=== PATIENT | female | born 1935 | race Caucasian/White ===

== ENCOUNTER 2021-06-08 12:21 | Emergency (ER) | payer MEDICARE, MEDICAID, SELFPAY ==
--- NOTE | ~2021-06-08 | CT_ITS ---
EXAMINATION: CT brain wo con, CT cervical spine wo con EXAM DATE: 06/08/2021 13:08 INDICATION: Fall, right frontal head injury. TECHNIQUE: Spiral CT of the head was performed without contrast. Axial, coronal and sagittal images were reviewed. Spiral CT of the cervical spine was performed without contrast. Axial images were rev iewed. Coronal and sagittal reformatted images were also reviewed. The dose-length product (DLP) fo r this examination was 605.33 (accession [id number]), 103.84 (accession [id number]) mGy-cm. The exposure was tailored according to patient size, and iterative reconstruction (ASIR) was used as additional dose reduction technique. There is no prior study for comparison. FINDINGS: HEAD CT: There is no acute intraparenchymal hemorrhage. No evidence of intraparenchymal brain mass l esion. No evidence of acute infarction. There is no mass effect or midline shift. There is no obstru ctive hydrocephalus suspected. There are no extra-axial collections. There are no acute calvarial f ractures. The orbits are unremarkable. Soft tissue is unremarkable. The visualized sinuses and mas toid air cells are well aerated. CERVICAL CT: There is no evidence of acute cervical fracture. The odontoid process is intact. Pre- dens space is normal. Prevertebral soft tissue is normal. There are no soft tissue abnormalities id entified. There is no disc space widening or traumatic vertebral body subluxation suspected. Modera te disc disease at C5-6 and 6-7. Overall moderate arthropathy. A detailed level by level evaluation of spondylosis can be added as addendum if requested. IMPRESSION: 1. No acute intracranial findings or cervical fracture. 2. Intracranial senescent changes. 3. Cervical spondylosis. Reviewed, dictated and finalized at location G. IMPRESSION: 1. No acute intracranial findings or cervical fracture. 2. Intracranial senescent changes. 3. Cervical spondylosis.
[2021-06-08 12:21] VITALS: BP 122/82; PULSE 55; RESP 20; TEMP 36.8; O2SAT 100
--- NOTE | 2021-06-08 12:30 | PC.NURSE ---
BED ALARM PLACED
--- NOTE | 2021-06-08 13:35 | ED.HEATRA ---
HPI - Head Injury General Chief complaint: Head Injury Stated complaint: fall/head injury Time Seen by Provider: 06/08/21 12:49 Source: EMS and RN notes reviewed Mode of arrival: EMS Limitations: dementia History of Present Illness HPI Narrative: 86 years old white female brought to the emergency room from longterm because of a fall. Patient was walking, tripped and fell, witnessed by the staff, hit a coffee table by left forehead. No loss of consciousness, no bleeding, no laceration. Patient is awake, alert and oriented to her name only which is her baseline Related Data Allergies Allergy/AdvReac Type Severity Reaction Status Date / Time Penicillins Allergy Unknown Verified 06/08/21 12:28 Review of Systems Review of Systems: ROS unobtainable: Yes unobtainable due to mental status Exam Narrative: Exam Narrative: General appearance: Well-developed, well-nourished Skin: Normal color, left forehead scrape/abrasion, no laceration, no bleeding no swelling Head: Normocephalic, nontraumatic Eyes: Clear conjunctiva ENT: Oropharynx normal, ears normal, nose normal Neck: Supple, nontender Chest and respiratory: Airway patent, no respiratory distress, no accessory muscle use Heart: Regular rate/rhythm Abdomen: Soft, nontender, no organomegaly, quiet bowel sounds Vascular: Normal peripheral pulses, normal capillary refill. Musculoskeletal: Normal range of motion, nontender back Neurologic: Alert and oriented to her name only Course Course Emergency Course: Stable Vital Signs Vital signs: Vital Signs Temperature 36.8 C 06/08/21 12:21 Pulse Rate 55 L 06/08/21 12:21 Respiratory Rate 06/08/21 12:21 Blood Pressure 122/82 06/08/21 12:21 Pulse Oximetry 100 06/08/21 12:21 Temperature 36.8 C 06/08/21 12:21 Pulse Rate 55 L 06/08/21 12:21 Respiratory Rate 20 06/08/21 12:21 Blood Pressure 122/82 06/08/21 12:21 Pulse Oximetry 100 06/08/21 12:21 MDM - Head Injury Imaging Data Radiologist's impression: Impressions Cervical Spine CT 06/08/21 13:10 IMPRESSION: 1. No acute intracranial findings or cervical fracture. 2. Intracranial senescent changes. 3. Cervical spondylosis. Head CT 06/08/21 13:10 IMPRESSION: 1. No acute intracranial findings or cervical fracture. 2. Intracranial senescent changes. 3. Cervical spondylosis. Critical Care Time Critical Care Time Critical Care Time: No Discharge Plan Discharge Clinical Impression: Closed head injury Qualifiers: Encounter type: subsequent encounter Qualified Code(s): S09.90XD - Unspecified injury of head, subsequent encounter Patient Disposition: [place] Intermediate/Asst Living Condition: Stable Instructions: Concussion (ED), Head Injury (ED) Additional Instructions: Return if symptoms are worsening , call your family physician for appointment, take Tylenol as as needed for aches and pain, continue home medications. Follow-up/Referrals: Rom Lam MD [Primary Care Provider] -
--- NOTE | 2021-06-08 13:47 | PC.NURSE ---
CALLED LONG TERM SPOKE PAPITO YOUNG AND REPORT GIVEN. NO QUESTIONS
== END 2021-06-08 15:18 ==
PROVIDERS: Emergency Provider Emergency Medicine; PCP Family Medicine
DX: S09.90XA Unspecified injury of head, initial encounter (principal); M47.812 Spondylosis without myelopathy or radiculopathy, cervical region; W01.190A Fall on same level from slipping, tripping and stumbling with subsequent striking against furniture, initial encounter
CPT/HCPCS: 70450; 72125; 99284

== ENCOUNTER 2021-11-19 14:22 | Emergency (ER) | payer MEDICARE, MEDICAID, SELFPAY ==
--- NOTE | ~2021-11-19 | CT_ITS ---
EXAMINATION: CT cervical spine wo [facility] EXAM DATE: 11/19/2021 14:55 INDICATION: Fall, head injury. TECHNIQUE: Spiral CT of the cervical spine was performed without contrast. Axial images were reviewe d. Coronal and sagittal reformatted images cervical spine were also reviewed. The dose-length produc t (DLP) for this examination was 139.69 mGy-cm. The exposure was tailored according to patient size (auto mA exposure control), and iterative reconstruction (ASIR) was used as additional dose reduction technique. There is no prior study for comparison. FINDINGS: There is mild reversal of the normal cervical lordosis which may be degenerative, positiona l or spasm. There is no evidence of acute cervical fracture. The odontoid process is intact. Pre-de ns space is normal. Prevertebral soft tissue is normal. There are no soft tissue abnormalities iden tified. There is no disc space widening or traumatic vertebral body subluxation suspected. Moderate disc disease at C5-6 and C6-7. Advanced arthropathy at some of the levels. A detailed level by tee orona evaluation of spondylosis can be added as addendum if requested. IMPRESSION: No acute cervical fracture. Reversal cervical lordosis. Spondylosis. Reviewed, dictated and finalized at location A. [employer] IMPRESSION: No acute cervical fracture. Reversal cervical lordosis. Spondylosis .
--- NOTE | ~2021-11-19 | CT_ITS ---
EXAMINATION: CT brain wo con DATE: 11/19/2021 14:55 INDICATION: Head injury. TECHNIQUE: Computed tomography (CT) of the head was performed without intravenous contrast. The mA wa s adjusted according to patient size. Iterative reconstruction technique was employed. The dose-lengt h product was 605.33 mGy-cm. COMPARISON: Head CT 06/08/2021 FINDINGS: There are scattered areas of low attenuation in the cerebral white matter. There is no intr acranial hemorrhage, acute infarction, or abnormal intracranial mass lesion. The ventricles are brigid l in size. There are likely changes of ocular lens replacement surgeries. There is mucosal thickening in the paranasal sinuses. The mastoid air cells are normal. IMPRESSION: 1. Stable moderate nonspecific cerebral white matter disease, which likely represents chronic small v essel ischemic disease. Reviewed, dictated and finalized at location A. ING ADMINISTRATOR IMPRESSION: 1. Stable moderate nonspecific cerebral white matter disease, which likely repr esents chronic small vessel ischemic disease.
--- NOTE | 2021-11-19 14:30 | ED.GENADULT ---
HPI - General Adult General Chief complaint: Fall Stated complaint: fall Source: EMS and RN notes reviewed History of Present Illness HPI narrative: Patient is a 86 y/o female sent from [place] for a fall. She reportedly fell today and has a small laceration right eyebrow. Patient has dementia is unable to provide any history. She is awake, but does not answer question or follow commands. She mumbles and moves all 4 extremities. Related Data Home Medications Medication Instructions Recorded Confirmed alendronate 70 mg PO WEEKLY 11/19/21 11/19/21 calcium carbonate-vitamin D3 1 tablet PO BID 11/19/21 [Calcium 500 + D (D3)] cyanocobalamin (vitamin B-12) 500 mcg PO DAILY 11/19/21 [Vitamin B-12] donepezil 10 mg HS 11/19/21 11/19/21 hydroxyzine pamoate 25 mg DAILY PRN 11/19/21 memantine 10 mg BID 11/19/21 mirtazapine [Remeron] 7.5 mg PO HS 11/19/21 oxybutynin chloride 5 mg DAILY 11/19/21 11/19/21 simvastatin 40 mg HS 11/19/21 11/19/21 trazodone 100 mg HS 11/19/21 11/19/21 Allergies Allergy/AdvReac Type Severity Reaction Status Date / Time Penicillins Allergy Unknown Verified 11/19/21 14:41 Review of Systems Review of Systems: ROS unobtainable: Yes unobtainable due to medical condition Exam Const: General: no acute distress and alert Orientation/consciousness: confusion HENMT: Head: normocephalic Ears: external ears normal General nose exam: Normal external nose present Eyes: General: appearance normal, both eyes and all related structures Conjunctivae: conjunctivae normal Neck: Neck: normal visual inspection and full ROM Chest: Chest palpation & inspection: normal inspection of the chest and no tenderness Resp: Effort & Inspection: normal respiratory effort Auscultation: clear to auscultation bilaterally Cardio: Rate: regular rate Rhythm: regular rhythm GI: GI Palp: No abdominal tenderness and Yes Soft to palpation Skin: General skin exam: normal color, turgor normal and ecchymosis (bruise on face) Trauma: laceration (1 cm lac right eyebrow) Neuro: General: confusion Extrem: General: normal to inspection, full ROM and no pedal edema Psych: Appearance: grossly normal Mental Status: mental status grossly normal Affect: normal affect Course Vital Signs Vital signs: Vital Signs Temperature 36.9 C 11/19/21 14:35 Pulse Rate 70 11/19/21 14:35 Respiratory Rate 18 11/19/21 14:35 Blood Pressure 132/75 11/19/21 14:35 Pulse Oximetry 98 11/19/21 14:35 Temperature 36.9 C 11/19/21 14:35 Pulse Rate 58 L 11/19/21 18:14 Respiratory Rate 20 11/19/21 18:14 Blood Pressure 138/52 L 11/19/21 18:14 Pulse Oximetry 98 11/19/21 18:14 Procedures Laceration Laceration 1: Date: 11/19/21 Time: 17:40 Site: face (right eyebrow) Side (If applicable): right Size (cm): 1 Description: linear Local Anesthetic: none ====== Skin Level ====== Skin layer closed with: dermabond ====== Subcutaneous Layer ====== ====== Muscle Layer ====== ====== Tendon Layer ====== Medical Decision Making Vital Signs Vital Signs: Vital Signs Temperature 36.9 C 11/19/21 14:35 Pulse Rate 70 11/19/21 14:35 Respiratory Rate 18 11/19/21 14:35 Blood Pressure 132/75 11/19/21 14:35 Pulse Oximetry 98 11/19/21 14:35 Temperature 36.9 C 11/19/21 14:35 Pulse Rate 58 L 11/19/21 18:14 Respiratory Rate 20 11/19/21 18:14 Blood Pressure 138/52 L 11/19/21 18:14 Pulse Oximetry 98 11/19/21 18:14 Discharge Plan Discharge Clinical Impression: Laceration of eyebrow, right Qualifiers: Encounter type: initial encounter Qualified Code(s): S01.111A - Laceration without foreign body of right eyelid and periocular area, initial encounter Fall Qualifiers: Encounter type: initial encounter Qualified Code(s): W19.XXXA - Unspecified fall, initial encounter Patient Disposition: [facility] Correction/Asst Living
[2021-11-19 14:35] VITALS: BP 132/75; PULSE 70; RESP 18; TEMP 36.9; O2SAT 98
[2021-11-19] MEDS: TETANUS,DIPHTHERIA,AC PERTUSSIS ADULT (0.5 ML) BOOSTRIX IM (15:23)
[2021-11-19 18:14] VITALS: BP 138/52; PULSE 58; RESP 20; O2SAT 98
[2021-11-19 19:00] VITALS: BP 114/86; PULSE 74; RESP 18; O2SAT 97
--- NOTE | 2021-11-19 19:00 | PC.NURSE ---
Assuming care of pt.
--- NOTE | 2021-11-19 22:36 | PC.NURSE ---
[facility] here
[2021-11-19 22:58] VITALS: BP 110/75; PULSE 86; RESP 18; O2SAT 98
== END 2021-11-19 22:45 ==
PROVIDERS: Emergency Provider Emergency Medicine; PCP Family Medicine
DX: S01.111A Laceration without foreign body of right eyelid and periocular area, initial encounter (principal); F03.90 Unspecified dementia, unspecified severity, without behavioral disturbance, psychotic disturbance, mood disturbance, and anxiety; Z23 Encounter for immunization; W19.XXXA Unspecified fall, initial encounter
CPT/HCPCS: 12011; 70450; 72125; 90471; 90715; 99284

== ENCOUNTER 2023-02-03 15:51 | Inpatient (IN) | payer MEDICARE, MEDICAID, SELFPAY ==
[2023-02-03] VITALS (15 sets, daily range): BP systolic 106–130; BP diastolic 62–85; PULSE 93–112; RESP 15–33; TEMP 36.3–36.9; O2SAT 98–100
--- NOTE | ~2023-02-03 | XR_ITS ---
EXAMINATION: XR chest 1V portable Exam Date/Time: 02/04/2023 14:40 CDT HISTORY: hypoxia Comparison: None available. RESULT: Lines, tubes, and devices: None. Lungs and pleura: Senescent changes. No focal consolidation or pneumothorax. Cardiomediastinal silhouette: Mild aortic tortuosity. Otherwise unremarkable. Other: No acute osseous or upper abdominal finding. Possible nondisplaced left fourth and fifth late ral rib fractures. IMPRESSION: No acute cardiopulmonary process. Nondisplaced left fourth and fifth lateral rib fractures, presumed chronic or blastic bony by acute pain/tenderness Reviewed, dictated and finalized at location K. IMPRESSION: No acute cardiopulmonary process. Nondisplaced left fourth and fifth lateral ri b fractures, presumed chronic or blastic bony by acute pain/tenderness
--- NOTE | ~2023-02-03 | CT_ITS ---
EXAMINATION: CT abdomen pelvis w con DATE: 02/03/2023 19:10 INDICATION: sacral ulcer TECHNIQUE: Computed tomography (CT) of the abdomen and pelvis was performed with 100 mL Omnipaque-350 intravenous contrast. Automated exposure control and iterative reconstruction technique were employe d. The dose-length product was 258.51 mGy-cm. COMPARISON: None. FINDINGS: Respiratory motion, nonstandard positioning, and beam hardening from arm positioning because limitati ons in this examination. Lower thorax: Small focus of dependent right lower lobe atelectasis/aspiration. Calcified granulomas in the lungs. Aortic valve and coronary artery calcification. Liver: Normal. Biliary/Gallbladder: Mild gallbladder enlargement No bile duct dilation. Pancreas: Moderate atrophy. Spleen: Granulomatous calcifications. Adrenals:No mass. Kidneys: Focus of right posterior midpole scar, with nonobstructing calcification. Simple left upper pole cyst. Bilateral hypodensities that are too small to characterize but most likely represent cysts . GI tract: The rectum is dilated to 6.3 cm by formed stool with mild wall thickening but no surroundin g inflammatory change. Distal esophageal and gastric wall edema. No small bowel dilation. The appendi x is not visualized Mesentery/Peritoneum: No ascites, mass, or free air. Retroperitoneum: No mass. Atherosclerotic abdominal aortic and/or arterial calcifications. Pelvis: Pelvic organs are within normal limits. Soft Tissues: Large sacral decubitus ulcer extending over the entire posterior surface of the sacrum and in contact with bone. Extension of the ulcer into left gluteal fat Bones: No acute osseous finding. Moderate bilateral hip effusions. No definite sclerosis or erosion of the sacrum, deep to the sacral ulceration. IMPRESSION: Limited examination as detailed above. Esophagitis/gastritis. Gallbladder hydrops. Large sacral decub itus ulcer, without definitive evidence of acute or chronic osteomyelitis, noting that early or mild disease is not excluded. Fecal impaction. Reviewed, dictated and finalized at location K. IMPRESSION: Limited examination as detailed above. Esophagitis/gastritis. Gallbladder hydro ps. Large sacral decubitus ulcer, without definitive evidence of acute or chron ic osteomyelitis, noting that early or mild disease is not excluded. Fecal impa ction.
--- NOTE | 2023-02-03 15:55 | ECG_ITS ---
Measurements Intervals [place] Rate: 105 P: [place]: 0 QRS: 12 QRSD: 105 T: 107 QT: 358 QTc: 475 Interpretive Statements SINUS TACHYCARDIA ST-T WAVE ABNORMALITY IN HIGH LATERAL LEADS- CONSIDER ISCHEMIA BASELINE ARTIFACT- I, II, III, AVR, AVL, AVF, V4-V6 BORDERLINE ECG NO PREVIOUS ECG AVAILABLE FOR COMPARISON Electronically Signed On 02-03-2023 21:46:03 CDT by Fidencio Cueto D.O.
[2023-02-03 16:09] LABS: Glucose Point of Care 134 mg/dl (65-105)
[2023-02-03 16:35] LABS: Basophils Percent Auto 0.2 % (0.2-1.2); Eosinophils Absolute Auto 0.1 K/mm3 (0-0.3); Eosinophils Percent Auto 0.6 % (0-4.4); Hematocrit 33.8 % (37.0-47.0); Hemoglobin 9.6 g/dL (12.0-15.0); Immature Granulocyte Absolute 0.04 K/mm3 (0.00-0.031); Immature Granulocyte Percent A 0.3 % (0-0.5); Lymphocytes Absolute Auto 1.08 K/mm3 (0.9-3.2); Lymphocytes Percent Auto 8.5 % (18.3-44.2); Mean Corpuscular HGB Conc 28.4 g/dl (32-36); Mean Corpuscular Hemoglobin 29.6 pg (26-34); Mean Corpuscular Volume 104.3 fl (80-100); Monocytes Absolute Auto 0.4 K/mm3 (0.1-0.6); Monocytes Percent Auto 3.2 % (2.6-8.5); Neutrophils Percent Auto 87.2 % (45.5-73.1); Platelet Count Result 378 k/mm3 (150-375); Red Blood Count 3.24 M/mm3 (4.2-5.4); White Blood Count 12.6 K/mm3 (4.5-10.0)
[2023-02-03 16:43] LABS: Lactic Acid Reflex 1.2 mmol/L (0.7-2.0)
[2023-02-03 16:44] LABS: INR 1.3; Prothrombin Time 15.3 Seconds (11.1-14.7)
[2023-02-03 16:45] LABS: Partial Thromboplastin Time 24.4 SECONDS (22.3-36.8)
[2023-02-03 16:47] LABS: Alanine Aminotransferase 21 U/L (6-35); Albumin Level 3.1 g/dL (3.5-5.1); Alkaline Phosphatase 122 U/L (38-126); Anion Gap 1 mmol/L (8-16); Aspartate Amino Transferase 30 U/L (14-36); Bilirubin,Total 0.6 mg/dL (0.2-1.3); Blood Urea Nitrogen 44 mg/dL (7-17); CRP 7.5 mg/dL (<1.0); Calcium 8.7 mg/dL (8.4-10.2); Carbon Dioxide 32 mmol/L (22-30); Chloride 122 mmol/L (98-107); Estimated CRCL calculation 31 ml/min; Estimated Glomerular Filt Rate > 60; Glucose 141 mg/dL (65-110); Potassium 4.5 mmol/L (3.4-5.0); Sodium 155 mmol/L (137-145)
[2023-02-03 16:53] LABS: Anisocytosis 1+ (NORMAL); Hypochromasia 1+ (NORMAL); Target Cells 1+ (NORMAL)
[2023-02-03 16:54] LABS: Ovalocytes 1+ (NORMAL); Schistocytes None Seen (NORMAL)
--- NOTE | 2023-02-03 17:02 | ED.WOUNDLAC ---
HPI - Wound/Laceration General Chief Complaint: Wound/Laceration Stated Complaint: necrotic sore History of Present Illness HPI narrative: Patient is an 87-year-old female who presents from her [facility] with a sacral decubitus ulcer. Patient has dementia and oriented x1. She is unable to provide any history. She has two quarter sized open areas over the sacrum. On the right side over the buttock the wound is very bruised and developing necrosis from not moving. There is a foul smell but no drainage. Related Data Home Medications Medication Instructions Recorded Confirmed alendronate 70 mg tablet 70 mg PO WEEKLY 11/19/21 11/19/21 calcium carbonate 500 mg-vitamin 1 tablet PO BID 11/19/21 D3 3.125 mcg (125 unit) tablet cyanocobalamin (vitamin B-12) 500 500 mcg PO DAILY 11/19/21 mcg tablet (Vitamin B-12) donepezil 10 mg tablet 10 mg HS 11/19/21 11/19/21 hydroxyzine pamoate 25 mg capsule 25 mg DAILY PRN Agitation 11/19/21 memantine 10 mg tablet 10 mg BID 11/19/21 mirtazapine 15 mg tablet (Remeron) 7.5 mg PO HS 11/19/21 oxybutynin chloride 5 mg tablet 5 mg DAILY 11/19/21 11/19/21 simvastatin 40 mg tablet 40 mg HS 11/19/21 11/19/21 trazodone 100 mg tablet 100 mg HS 11/19/21 11/19/21 Allergies Allergy/AdvReac Type Severity Reaction Status Date / Time Penicillins Allergy Unknown Verified 11/19/21 14:41 Review of Systems Review of Systems: ROS unobtainable: Yes unobtainable due to mental status [facility] Past Medical History Medical History (Updated 02/03/23 @ 21:42 by Jt Toledo MD) Anxiety COPD (chronic obstructive pulmonary disease) Dementia Depression Hypertension Social History Social History Gender identity (if verbalized by the patient): Female Exam Narrative: GENERAL: Chronically ill-appearing, underweight, and in no acute distress. HEAD: Normocephalic, atraumatic. EYES: PERRL and EOMI. ENT: Dry mucous membranes. CHEST: Clear to auscultation. No respiratory distress. HEART: Regular rate and rhythm. Normal peripheral pulses. ABDOMEN: Soft, nontender, nondistended. Sacral decubitus ulcers present with bruising necrosis. Foul-smelling without drainage. EXTREMITIES: Normal range of motion. No edema. SKIN: Warm, dry, no rash. NEURO: Alert alert but not oriented.. Course Course Emergency Course: Patient is incredibly dry, we have been unable to obtain urine despite her getting couple liters of fluid. She will be started on IV antibiotics for sacral decubitus wound. I tried to contact patient's POA but the phone number listed had been disconnected. Patient will did receive a enema down here. Vital Signs Vital signs: Vital Signs Pulse Rate 108 H 02/03/23 15:57 Respiratory Rate 19 02/03/23 15:57 Temperature 98.5 F 02/03/23 15:59 Pulse Rate 98 02/03/23 19:31 Respiratory Rate 20 02/03/23 19:31 Blood Pressure 107/85 02/03/23 19:30 Pulse Oximetry 100 02/03/23 19:31 Oxygen Delivery Room Air 02/03/23 15:59 MDM - Wound/Laceration Lab Data 02/03/23 16:25 02/03/23 16:25 Labs: Lab Results 02/03/23 02/03/23 02/03/23 Range/Units 16:00 16:25 16:25 WBC 12.6 H (4.5-10.0) K/mm3 RBC 3.24 L (4.2-5.4) M/mm3 Hgb 9.6 L (12.0-15.0) g/dL Hct 33.8 L (37.0-47.0) % MCV 104.3 H (80-100) fl MCH 29.6 (26-34) pg MCHC 28.4 L (32-36) g/dl RDW 15.0 H (11.5-14.5) % Plt Count 378 H (150-375) k/mm3 MPV 10.0 (7.4-10.4) fl Immature Gran % (Auto) 0.3 (0-0.5) % Neut % (Auto) 87.2 H (45.5-73.1) % Lymph % (Auto) 8.5 L (18.3-44.2) % [place] % (Auto) 3.2 (2.6-8.5) % Eos % (Auto) 0.6 (0-4.4) % Baso % (Auto) 0.2 (0.2-1.2) % Lymph # (Auto) 1.08 (0.9-3.2) K/mm3 [place] # (Auto) 0.4 (0.1-0.6) K/mm3 Eos # (Auto) 0.1 (0-0.3) K/mm3 Baso # (Auto) 0.0 (0.0-0.1) K/mm3 Abs Immat Gran (auto) 0.04 H (0.00-0.
[2023-02-03] MEDS: SODIUM CHLORIDE 0.9% IV 1,000 ML 999 ML IV CONT ×2 (17:35→19:24)
--- NOTE | 2023-02-03 20:28 | PM.IMHP ---
H&P: HPI History of Present Illness Date/Time: 02/03/23 20:28 Chief Complaint: Altered mental status Narrative: This is an 87-year-old female with past medical history significant for dementia, she is a long-term resident, patient is brought to the emergency room for evaluation of necrotic decubitus ulcers decreased per orally intake and altered mental status. Patient is unable to give any history which has been obtained in part reviewing medical records physician from the emergency room and long-term records. Preliminary workup was significant for chemistry panel with sodium of 155, CBC showed a leukocyte count Twelve thousand, hemoglobin 9.6, hematocrit 33 MCV 104, a CT of abdomen and pelvis was reported as: FINDINGS: Respiratory motion, nonstandard positioning, and beam hardening from arm positioning because limitations in this examination. Lower thorax: Small focus of dependent right lower lobe atelectasis/aspiration. Calcified granulomas in the lungs. Aortic valve and coronary artery calcification. Liver: Normal.? Biliary/Gallbladder: Mild gallbladder enlargement No bile duct dilation. Pancreas: Moderate atrophy. Spleen: Granulomatous calcifications. Adrenals:No mass. Kidneys: Focus of right posterior midpole scar, with nonobstructing calcification. Simple left upper pole cyst. Bilateral hypodensities that are too small to characterize but most likely represent cysts. GI tract: The rectum is dilated to 6.3 cm by formed stool with mild wall thickening but no surrounding inflammatory change. Distal esophageal and gastric wall edema. No small bowel dilation. The appendix is not visualized Mesentery/Peritoneum: No ascites, mass, or free air. Retroperitoneum: No mass. Atherosclerotic abdominal aortic and/or arterial calcifications. Pelvis: Pelvic organs are within normal limits. Soft Tissues: Large sacral decubitus ulcer extending over the entire posterior surface of the sacrum and in contact with bone. Extension of the ulcer into left gluteal fat Bones:? No acute osseous finding. Moderate bilateral hip effusions. No definite sclerosis or erosion of the sacrum, deep to the sacral ulceration. IMPRESSION: Limited examination as detailed above. Esophagitis/gastritis. Gallbladder hydrops. Large sacral decubitus ulcer, without definitive evidence of acute or chronic osteomyelitis, noting that early or mild disease is not excluded. Fecal impaction. Review of Systems Review of Systems: ROS unobtainable: Yes unobtainable due to medical condition and unobtainable due to mental status (Obtunded) [facility] Past Medical History Medical History (Updated 02/04/23 @ 00:46 by Colton Dang MD) Anxiety COPD (chronic obstructive pulmonary disease) Dementia Depression Hypertension Social History Social History Smoking status: Unknown if ever smoked Alcohol intake: unknown Substance use: unknown Gender identity (if verbalized by the patient): Female Spiritual care concerns: No Meds Home Medications and Allergies Home Medications Medication Instructions Recorded Confirmed Type alendronate 70 mg tablet 70 mg PO WEEKLY 11/19/21 02/03/23 History calcium carbonate 500 mg-vitamin 1 tablet PO BID 11/19/21 02/03/23 History D3 3.125 mcg (125 unit) tablet cyanocobalamin (vitamin B-12) 500 500 mcg PO DAILY 11/19/21 02/03/23 History mcg tablet (Vitamin B-12) donepezil 10 mg tablet 10 mg PO HS 11/19/21 02/03/23 History memantine 10 mg tablet 10 mg PO BID 11/19/21 02/03/23 History mirtazapine 15 mg tablet (Remeron) 7.5 mg PO HS 11/19/21 02/03/23 History oxybutynin chloride 5 mg tablet 5 mg PO DAILY 11/19/21 02/03/23 History simvastatin 40 mg tablet 40 mg PO HS 11/19/21 02/03/23 History trazodone 100 mg tablet 100 mg PO HS 11/19/21 02/03/23 History acetaminophen 650 mg tablet 650 mg PO Q6H PRN Pain (Scale 02/03/23 02/03/23 History Score 1-3) ascorbic acid (vitamin C) 500 mg 500 mg P
[2023-02-03] MEDS: AZTREONAM 1 GM in SODIUM CHLORIDE 0.9% IV 50 ML 100 ML IVPB (21:07)
[2023-02-03] MEDS: SODIUM CHLORIDE 0.9% IV 1,000 ML 125 ML IV CONT (22:27)
[2023-02-04] VITALS (7 sets, daily range): BP systolic 113–143; BP diastolic 63–89; PULSE 65–99; RESP 16–20; TEMP 36.1–36.4; O2SAT 94–100; BMI 14.3
--- NOTE | 2023-02-04 00:18 | PC.NURSE ---
This patient, Claire Sosa, was admitted to Medical Room 342-01. Patient/family oriented to hospital policies and general routines including ID bracelet, bed and alarms, visiting hours, pain management, procedures, bathroom and other care routines, personal items, smoking policy, room service/diet, and visiting hours. Information on how to activate the Rapid Response Team has been discussed. Patient/Family are encouraged to report perceived risks to care and to ask questions if they do not understand what they are told or what they should do. Wound Photos completes wound care consult completed
[2023-02-04] MEDS: DEXTROSE 5%/0.45% SOD CHL 1,000 ML 75 ML IV CONT (00:46)
[2023-02-04 01:16] LABS: Basophils Percent Auto 0.1 % (0.2-1.2); Eosinophils Absolute Auto 0.1 K/mm3 (0-0.3); Hematocrit 31.4 % (37.0-47.0); Hemoglobin 8.9 g/dL (12.0-15.0); Immature Granulocyte Absolute 0.03 K/mm3 (0.00-0.031); Immature Granulocyte Percent A 0.3 % (0-0.5); Lymphocytes Absolute Auto 0.98 K/mm3 (0.9-3.2); Lymphocytes Percent Auto 9.8 % (18.3-44.2); Mean Corpuscular HGB Conc 28.3 g/dl (32-36); Mean Corpuscular Hemoglobin 29.4 pg (26-34); Mean Corpuscular Volume 103.6 fl (80-100); Mean Platelet Volume 10.1 fl (7.4-10.4); Monocytes Absolute Auto 0.3 K/mm3 (0.1-0.6); Monocytes Percent Auto 2.8 % (2.6-8.5); Neutrophils Absolute Auto 8.6 K/mm3 (1.3-6.7); Platelet Count Result 333 k/mm3 (150-375); Red Blood Count 3.03 M/mm3 (4.2-5.4)
[2023-02-04 01:22] LABS: Anisocytosis 1+ (NORMAL); Hypochromasia 1+ (NORMAL); Platelet Estimate Adequate (Adequate)
[2023-02-04 01:23] LABS: Ovalocytes 1+ (NORMAL); Schistocytes None Seen (NORMAL)
[2023-02-04 01:27] LABS: Anion Gap 2 mmol/L (8-16); Blood Urea Nitrogen 33 mg/dL (7-17); Calcium 7.7 mg/dL (8.4-10.2); Carbon Dioxide 28 mmol/L (22-30); Chloride 124 mmol/L (98-107); Estimated CRCL calculation 31 ml/min; Estimated Glomerular Filt Rate > 60; Glucose 154 mg/dL (65-110); Magnesium 2.7 mg/dL (1.6-2.3); Phosphorus 2.7 mg/dL (2.5-4.5); Sodium 154 mmol/L (137-145)
[2023-02-04] MEDS: AZTREONAM 1 GM in SODIUM CHLORIDE 0.9% IV 50 ML 100 ML IVPB (05:16)
[2023-02-04 05:54] LABS: Basophils Percent Auto 0.2 % (0.2-1.2); Eosinophils Absolute Auto 0.1 K/mm3 (0-0.3); Eosinophils Percent Auto 1.4 % (0-4.4); Hematocrit 30.7 % (37.0-47.0); Hemoglobin 8.6 g/dL (12.0-15.0); Immature Granulocyte Absolute 0.03 K/mm3 (0.00-0.031); Immature Granulocyte Percent A 0.3 % (0-0.5); Lymphocytes Absolute Auto 0.96 K/mm3 (0.9-3.2); Lymphocytes Percent Auto 10.9 % (18.3-44.2); Mean Corpuscular Hemoglobin 29.5 pg (26-34); Mean Corpuscular Volume 105.1 fl (80-100); Mean Platelet Volume 10.1 fl (7.4-10.4); Monocytes Absolute Auto 0.3 K/mm3 (0.1-0.6); Monocytes Percent Auto 3.3 % (2.6-8.5); Neutrophils Absolute Auto 7.4 K/mm3 (1.3-6.7); Neutrophils Percent Auto 83.9 % (45.5-73.1); Platelet Count Result 311 k/mm3 (150-375); Red Blood Count 2.92 M/mm3 (4.2-5.4); Red Cell Distribution Width 15.2 % (11.5-14.5); White Blood Count 8.8 K/mm3 (4.5-10.0)
[2023-02-04 06:11] LABS: Anion Gap 4 mmol/L (8-16); Blood Urea Nitrogen 30 mg/dL (7-17); Calcium 7.9 mg/dL (8.4-10.2); Carbon Dioxide 27 mmol/L (22-30); Chloride 124 mmol/L (98-107); Estimated CRCL calculation 31 ml/min; Estimated Glomerular Filt Rate > 60; Glucose 148 mg/dL (65-110); Potassium 3.9 mmol/L (3.4-5.0); Sodium 155 mmol/L (137-145)
[2023-02-04 07:31] LABS: Hypochromasia 1+ (NORMAL); Ovalocytes 1+ (NORMAL); Platelet Estimate Adequate (Adequate); Schistocytes None Seen (NORMAL)
[2023-02-04 07:32] LABS: Anisocytosis 1+ (NORMAL)
[2023-02-04] MEDS: PANTOPRAZOLE SODIUM IV 40 MG VIAL IV PUSH ×2 (09:16→21:00)
--- NOTE | 2023-02-04 10:35 | PM.IMPN ---
Progress Note: A&P Assessment and Plan (1) Decubitus ulcer of sacral area: Code(s): L89.159 - Pressure ulcer of sacral region, unspecified stage Status: Acute Assessment and Plan: Patient noted to have large decubitus ulceration and imaging suggestive extending to the bone without suggested osteomyelitis. Prelim discharge and follow odor noted suggesting infection. Continue broad-spectrum antibiotics-IV vancomycin pharmacy to dose, IV cefepime, and IV metronidazole Continue offloading schedule q.2 hours General surgery and Wound care consulted and appreciate recommendations. Plan for OR debridement tomorrow Michele catheter placed due to decubitus ulcer Blood cultures pending (2) Acute dehydration: Code(s): E86.0 - Dehydration Status: Acute Assessment and Plan: Secondary to acute infection, poor oral intake and suggested by acute hypernatremia Trend bMP Given hypernatremia will treat with D5W until hypernatremia corrected and adjust IV fluids as needed. Monitor strict I's and O's (3) Wound infection: Code(s): T14.8XXA - Other injury of unspecified body region, initial encounter; L08.9 - Local infection of the skin and subcutaneous tissue, unspecified Status: Acute Assessment and Plan: As above (4) Acute hypernatremia: Code(s): E87.0 - Hyperosmolality and hypernatremia Status: Acute Assessment and Plan: Sodium 155 on admission. Secondary to poor oral free water intake. Changed to D5W at 75 mL/hour. Repeat sodium 152. Will continue q.6 hours sodium checks until sodium less than 145 (5) Esophagitis: Code(s): K20.90 - Esophagitis, unspecified without bleeding Status: Acute Assessment and Plan: A suggested on CT scan. Continue IV PPI b.i.d. (6) Fecal impaction: Code(s): K56.41 - Fecal impaction Status: Acute Assessment and Plan: Soapsuds enema x1 patient with bowel movement today. (7) Altered mental status: Code(s): R41.82 - Altered mental status, unspecified Status: Acute Assessment and Plan: Likely secondary to hyponatremia likely to be Endocrine metabolic encephalopathy Supportive care (8) Acute metabolic encephalopathy: Code(s): G93.41 - Metabolic encephalopathy Status: Acute Assessment and Plan: secondary to hypernatremia, acute decubitus ulcer with infection, dehydration and known underlying dementia. Continue to treat as above. Monitor neuro status (9) Abnormal urinalysis: Code(s): R82.90 - Unspecified abnormal findings in urine Status: Acute Assessment and Plan: UA sent with IV catheter insertion and demonstrated cloudy urine with high specific gravity, 3+ blood, positive nitrates, 2+ leukocyte, greater than 100 wbc's and rbc's, rare epi cells and 4+ bacteria suggestive of acute infection. Given patient's mental status it difficult to assess symptoms. Continue broad-spectrum IV antibiotics as above. Urine and blood cultures pending Plan Code status: Full code. Disposition: Patient is from jail and has a state guardian. Diet: Regular pureed diet, NPO after midnight for OR debridement Antibiotic: Vancomycin IV day 2, cefepime IV day 1, metronidazole IV day 1 DVT prophylaxis: SCDs, hold pharmacologic prophylaxis until postop and cleared by General surgery Time Spent With Patient Time with patient: Greater than 35 minutes Subjective Date/time seen: 02/04/23 10:35 Patient found in bed. Awake, but not answering questions or following commands. Nursing reports patient is intermittently moaning. Review of Systems Review of Systems: ROS unobtainable: Yes unobtainable due to medical condition and unobtainable due to mental status Exam Narrative: General: Thin, frail, moderately ill-appearing older adult female lying in bed. Neuro/Psych: Awake, unable to assess orientation, speech with incomprehensible words. Does
--- NOTE | 2023-02-04 11:35 | PM.CNGS ---
Assessment and Plan Assessment and plan (1) Decubitus ulcer of sacral area: Code(s): L89.159 - Pressure ulcer of sacral region, unspecified stage Status: Acute Assessment and Plan: The patient has a large necrotic sacral decubitus ulcer that extends to bone. CT without evidence of osteomyelitis. Continue with broad-spectrum IV antibiotics and will initiate local wound care with Dakin's soaked gauze dressing changes. We would recommend excisional debridement of the sacral ulcer in the OR by Dr. Chin. Will allow the patient to have a regular pureed diet today and will make her NPO after midnight. She has been added onto the OR schedule tomorrow. (2) Pressure ulcer: Code(s): L89.90 - Pressure ulcer of unspecified site, unspecified stage Status: Acute Assessment and Plan: Multiple additional small deep tissue injuries and superficial pressure ulcers of the left hip that appear stable. No indication for any surgical intervention to these areas. Recommend to continue with local wound care. Will initiate mepilex border dressings to the closed pressure areas for protection and start silver gel dressing changes with mepilex border to the open ulcers on the left hip. Recommend frequent turning at least every 2 hours. Will also order a specialty mattress. (3) Fecal impaction: Code(s): K56.41 - Fecal impaction Status: Acute Assessment and Plan: Noted on CT. Received soap suds enema in ER and did not tolerate well per nursing. Will try fleets enema today. May need stimulation from above as well if unable to tolerate enemas. (4) Acute hypernatremia: Code(s): E87.0 - Hyperosmolality and hypernatremia Status: Acute Assessment and Plan: Sodium 155 on admission. Appeared dehydrated, continue IV fluids, monitor labs. (5) Dementia: Code(s): F03.90 - Unspecified dementia, unspecified severity, without behavioral disturbance, psychotic disturbance, mood disturbance, and anxiety Status: Chronic (6) COPD (chronic obstructive pulmonary disease): Code(s): J44.9 - Chronic obstructive pulmonary disease, unspecified Status: Chronic (7) Body mass index (BMI) less than 19: Code(s): Z68.1 - Body mass index [BMI] 19.9 or less, adult Status: Acute Plan I have discussed the patient's case and plan of care with Dr. Chin. Thank you for allowing us to see the patient in consultation and we will continue to follow along with you. History of Present Illness Consult details Consult date: 02/04/23 Reason for consult: other (Necrotic sacral decubitus ulcer) Requesting physician: Colton Dang MD Narrative: This is an 87-year-old woman with dementia who was brought into the ER yesterday for evaluation of a sacral decubitus ulcer. Patient is unable to provide history due to her dementia. During my evaluation, she is primarily mumbling and will not answer any of my orientation or simple yes or no questions. Therefore, her history is obtained by review of the electronic medical record. Per nursing, she is a [facility] of the [facility]. In the ER, [place] [address], hemoglobin 9.6, sodium 155, BUN 44, creatinine 0.7, lactic acid 1.2, and CRP 7.5. She was afebrile and hemodynamically stable. She was found to have a foul-smelling necrotic sacral decubitus ulcer. CT scan of the abdomen and pelvis showed a large sacral decubitus ulcer without definitive evidence of acute or chronic osteomyelitis, fecal impaction, esophagitis/gastritis, and gallbladder hydrops. She received a soapsuds enema in the ER. Reportedly she has not had a bowel movement. She was admitted to the hospitalist service on the medical floor. She is seen this morning with the wound care nurse. Review of Systems Review of Systems: ROS unobtainable: Yes unobtainable due to medical condition PMFSH Past Medical History Medical History (Updated 02/04/23 @ 11:58 by Neda
[2023-02-04] MEDS: CEFEPIME 2 GM/NS 50 ML 2 GM/50 ML BAG IVPB (13:04)
[2023-02-04] MEDS: DEXTROSE 5% 1,000 ML 1,000 ML 75 ML IV CONT (13:04)
[2023-02-04] MEDS: SILVERGEL (ELTA) 45 ML 1 APPLIC TOPICAL (13:05)
[2023-02-04 13:10] LABS: Sodium 152 mmol/L (137-145)
[2023-02-04 14:16] LABS: Appearance Urine Cloudy (Clear); Bacteria Urine 4+ /hpf; Bilirubin Urine Negative (Negative); Blood Urine 3+ (Negative); Color Urine Yellow (Yellow); Glucose Urine UA Negative (Negative); Ketones Urine Negative (Negative); Leukocyte Esterase Ur 2+ LEU/UL (Negative); Nitrate Urine Positive (Negative); Protein Urine 1+ mg/dL (Negative); RBC Urine >100 /hpf (0-2); Squamous Epithelial Cell Urine Occasional /hpf (Few); Urobilinogen Urine 0.2 mg/dL (<2.0); WBC Clumps Urine Present /HPF; WBC Urine >100 /hpf; pH Urine 5.5 (5.0-9.0)
[2023-02-04 14:34] LABS: Specific Grav Ur 1.044 (1.001-1.035)
[2023-02-04 14:41] LABS: Base Excess ABG -0.7 mEq/l (+/-2.0); Carboxyhemoglobin 0.5 % THb (0-2.0); Fractional Inspired Oxygen 36 %; HCO3 ABG 22.5 mEq/l (22.0-26.0); Methemoglobin ABG 0.3 %THb (0-1.5); Oxygen Content ABG 12.6 %vol (16.0-22.0); Oxygen Saturation ABG 99.6 % (95.0-100.0); Oxyhemoglobin 98.2 % THb (90.0-100.0); PCO2 ABG 31.4 mmHg (35.0-45.0); PO2 ABG 234.1 mmHg (80.0-100.0); Total Hemoglobin 8.7 g/dL (12.0-18.0); pH ABG 7.474 (7.350-7.450)
[2023-02-04 14:45] LABS: Device NASAL CANNULA; Modified Allen's Test Pass; Site Drawn RIGHT RADIAL
[2023-02-04] MEDS: metroNIDAZOLE 500 MG/ISO 100ML 500 MG/100 ML BAG 100 MG IVPB ×2 (14:49→21:04)
[2023-02-04 15:16] LABS: Add Urine Microscopic? YES
--- NOTE | 2023-02-04 15:20 | PC.NURSE ---
RN has attempted to call Oli So, pt's guardian, with no success.
--- NOTE | 2023-02-04 15:28 | PC.NURSE ---
RN recieved a call back from Jeramy Winchester, covering for Oli So who is out of town. Jeramy Winchester gave consent via phone for pt's I&D tomorrow.
[2023-02-04 15:51] LABS: Sodium 154 mmol/L (137-145)
[2023-02-04] MEDS: SOD HYPOCHLORITE 1/4 STRENGTH 473 ML 1 APPLIC TOPICAL (21:00)
[2023-02-04 22:44] LABS: Sodium 151 mmol/L (137-145)
[2023-02-05] VITALS (15 sets, daily range): BP systolic 96–144; BP diastolic 45–92; PULSE 64–99; RESP 12–20; TEMP 36–36.8; O2SAT 97–100
[2023-02-05] MEDS: metroNIDAZOLE 500 MG/ISO 100ML 500 MG/100 ML BAG 100 MG IVPB ×3 (05:40→21:07)
[2023-02-05 05:57] LABS: Basophils Percent Auto 0.1 % (0.2-1.2); Eosinophils Absolute Auto 0.1 K/mm3 (0-0.3); Hematocrit 27.5 % (37.0-47.0); Hemoglobin 7.9 g/dL (12.0-15.0); Immature Granulocyte Absolute 0.04 K/mm3 (0.00-0.031); Immature Granulocyte Percent A 0.4 % (0-0.5); Lymphocytes Absolute Auto 0.73 K/mm3 (0.9-3.2); Lymphocytes Percent Auto 7.5 % (18.3-44.2); Mean Corpuscular HGB Conc 28.7 g/dl (32-36); Mean Corpuscular Volume 101.1 fl (80-100); Mean Platelet Volume 10.3 fl (7.4-10.4); Monocytes Absolute Auto 0.3 K/mm3 (0.1-0.6); Monocytes Percent Auto 2.8 % (2.6-8.5); Neutrophils Absolute Auto 8.6 K/mm3 (1.3-6.7); Neutrophils Percent Auto 88.2 % (45.5-73.1); Platelet Count Result 261 k/mm3 (150-375); Red Blood Count 2.72 M/mm3 (4.2-5.4); Red Cell Distribution Width 14.9 % (11.5-14.5); White Blood Count 9.8 K/mm3 (4.5-10.0)
[2023-02-05 06:19] LABS: Alanine Aminotransferase 17 U/L (6-35); Albumin Level 2.7 g/dL (3.5-5.1); Alkaline Phosphatase 103 U/L (38-126); Anion Gap 2 mmol/L (8-16); Aspartate Amino Transferase 26 U/L (14-36); Bilirubin,Total 0.5 mg/dL (0.2-1.3); Blood Urea Nitrogen 21 mg/dL (7-17); Calcium 7.9 mg/dL (8.4-10.2); Carbon Dioxide 26 mmol/L (22-30); Chloride 122 mmol/L (98-107); Estimated CRCL calculation 36 ml/min; Estimated Glomerular Filt Rate > 60; Glucose 106 mg/dL (65-110); Sodium 150 mmol/L (137-145)
--- NOTE | 2023-02-05 07:07 | PM.IMPN ---
Progress Note: A&P Assessment and Plan (1) Decubitus ulcer of sacral area: Code(s): L89.159 - Pressure ulcer of sacral region, unspecified stage Status: Acute Assessment and Plan: Patient noted to have large decubitus ulceration and imaging suggestive extending to the bone without suggested osteomyelitis. Prelim discharge and follow odor noted suggesting infection. Continue broad-spectrum antibiotics-IV vancomycin pharmacy to dose, IV cefepime, and IV metronidazole Continue offloading schedule q.2 hours General surgery and Wound care consulted and appreciate recommendations. 02/05 OR debridement completed. Michele catheter placed due to decubitus ulcer Blood cultures negative to date Appears wound culture not drawn on admission. Obtain wound culture now, likely low yield given pt on broad-spectrum antibiotics. (2) Acute dehydration: Code(s): E86.0 - Dehydration Status: Acute Assessment and Plan: Secondary to acute infection, poor oral intake and suggested by acute hypernatremia Trend bMP - renal function stable. Given hypernatremia will treat with D5W until hypernatremia corrected and adjust IV fluids as needed. Monitor strict I's and O's (3) Wound infection: Code(s): T14.8XXA - Other injury of unspecified body region, initial encounter; L08.9 - Local infection of the skin and subcutaneous tissue, unspecified Status: Acute Assessment and Plan: As above (4) Acute hypernatremia: Code(s): E87.0 - Hyperosmolality and hypernatremia Status: Acute Assessment and Plan: Sodium 155 on admission. Secondary to poor oral free water intake. Changed to D5W. Repeat sodium 152. Will continue q.6 hours sodium checks until sodium less than 145 02/05 Sodium 150, increase D5W 125 mL/hour (5) Esophagitis: Code(s): K20.90 - Esophagitis, unspecified without bleeding Status: Acute Assessment and Plan: A suggested on CT scan. Continue IV PPI b.i.d. (6) Fecal impaction: Code(s): K56.41 - Fecal impaction Status: Acute Assessment and Plan: Soapsuds enema x1 patient with bowel movement 02/04. Pt with 3 BM documented 02/04-02/05 (7) Acute metabolic encephalopathy: Code(s): G93.41 - Metabolic encephalopathy Status: Acute Assessment and Plan: secondary to hypernatremia, acute decubitus ulcer with infection, dehydration and known underlying dementia. Continue to treat as above. Monitor neuro status 02/05 patient is more alert today. (8) Abnormal urinalysis: Code(s): R82.90 - Unspecified abnormal findings in urine Status: Acute Assessment and Plan: UA sent with IV catheter insertion and demonstrated cloudy urine with high specific gravity, 3+ blood, positive nitrates, 2+ leukocyte, greater than 100 wbc's and rbc's, rare epi cells and 4+ bacteria suggestive of acute infection. Given patient's mental status it difficult to assess symptoms. Continue broad-spectrum IV antibiotics as above. Urine and blood cultures pending (9) Anemia: Qualifiers: Anemia type: other cause Code(s): D64.9 - Anemia, unspecified Status: Chronic Assessment and Plan: Hgb 9.6 to 8.9 to 7.9. Patient takes B12, folic acid supplements. Check iron panel. Presumed nutritional deficiency anemia given malnutrition. (10) Protein-calorie malnutrition, severe: Code(s): E43 - Unspecified severe protein-calorie malnutrition Status: Chronic Assessment and Plan: BMI 14 kg/m2. albumin 2.7. with evidence of frailty, subcutaneous fat loss and muscle wasting. Silk Spotter consulted. Continue oral supplements as recommended. Plan Code status: Full code. Disposition: Patient is from skilled nursing and has a state guardian. Diet: Regular pureed diet Antibiotic: Vancomycin IV day 3, cefepime IV day 2, metronidazole IV day 2 DVT prophylaxis: SCDs, pharmacologic prophylaxis
[2023-02-05 07:25] LABS: Magnesium 2.4 mg/dL (1.6-2.3)
[2023-02-05] MEDS: PANTOPRAZOLE SODIUM IV 40 MG VIAL IV PUSH ×2 (08:30→20:17)
[2023-02-05] MEDS: SOD HYPOCHLORITE 1/4 STRENGTH 473 ML 1 APPLIC TOPICAL ×2 (08:30→20:17)
[2023-02-05] MEDS: DEXTROSE 5% 1,000 ML 1,000 ML 125 ML IV CONT ×2 (08:30→21:07)
[2023-02-05] MEDS: POTASSIUM CHLORIDE INJ 40 MEQ in SODIUM CHLORIDE 0.9% IV 500 ML 130 MEQ IVPB (08:30)
[2023-02-05] MEDS: SILVERGEL (ELTA) 45 ML 1 APPLIC TOPICAL (08:31)
--- NOTE | 2023-02-05 10:00 | WPDANESEPPF ---
Anes - Initial Pre Proc Eval Procedure: Operation Date: 02/05/23 11:00 Proposed Procedures p Sacral Decubitus Ulcer Debridement - Eulogio Chin DO Date/Time: 02/05/23 10:00 Surgeon: Colton Dang MD Pre Op Diagnosis: decubitus ulcer,fecal impacation,dehydration,hyper Patient Data Age: 87 Gender: F Height: 1.65 m Weight: 39.2 kg Last Vital Signs Temp 36.6 C 02/05/23 05:54 Pulse 99 02/05/23 05:54 Resp 20 02/05/23 05:54 BP 144/92 H 02/05/23 05:54 Pulse Ox 100 02/05/23 05:54 O2 Del Method Nasal Cannula 02/04/23 20:00 O2 Flow Rate 2 02/04/23 20:00 Allergies Allergy/AdvReac Type Severity Reaction Status Date / Time Penicillins Allergy Unknown Verified 11/19/21 14:41 Home Medications Medication Instructions Recorded Confirmed Type alendronate 70 mg tablet 70 mg PO WEEKLY 11/19/21 02/03/23 History calcium carbonate 500 mg-vitamin 1 tablet PO BID 11/19/21 02/03/23 History D3 3.125 mcg (125 unit) tablet cyanocobalamin (vitamin B-12) 500 500 mcg PO DAILY 11/19/21 02/03/23 History mcg tablet (Vitamin B-12) donepezil 10 mg tablet 10 mg PO HS 11/19/21 02/03/23 History memantine 10 mg tablet 10 mg PO BID 11/19/21 02/03/23 History mirtazapine 15 mg tablet (Remeron) 7.5 mg PO HS 11/19/21 02/03/23 History oxybutynin chloride 5 mg tablet 5 mg PO DAILY 11/19/21 02/03/23 History simvastatin 40 mg tablet 40 mg PO HS 11/19/21 02/03/23 History trazodone 100 mg tablet 100 mg PO HS 11/19/21 02/03/23 History acetaminophen 650 mg tablet 650 mg PO Q6H PRN Pain (Scale 02/03/23 02/03/23 History Score 1-3) ascorbic acid (vitamin C) 500 mg 500 mg PO BID 02/03/23 02/03/23 History tablet folic acid 400 mcg tablet 0.4 mg PO DAILY 02/03/23 02/03/23 History multivitamin with minerals 1 tablet PO DAILY 02/03/23 02/03/23 History (Multiple Vitamin-Minerals tablet) Laboratory Tests 02/04/23 02/04/23 02/04/23 12:55 13:54 14:37 WBC RBC Hgb Hct MCV MCH MCHC RDW Plt Count MPV Immature Gran % (Auto) Neut % (Auto) Lymph % (Auto) Clayton % (Auto) Eos % (Auto) Baso % (Auto) Lymph # (Auto) [place] # (Auto) Eos # (Auto) Baso # (Auto) Abs Immat Gran (auto) Absolute Neuts (auto) Absolute Nucleated RBC Nucleated RBC % Puncture Site Right radial ABG pH 7.474 H (7.350-7.450) ABG pCO2 31.4 mmHg L mmHg (35.0-45.0) ABG pO2 234.1 mmHg H mmHg (80.0-100.0) ABG PO2/FiO2 Ratio 6.50 % % ABG HCO3 22.5 mEq/l mEq/l (22.0-26.0) ABG O2 Saturation 99.6 % % (95.0-100.0) ABG O2 Content 12.6 %vol L %vol (16.0-22.0) ABG Base Excess -0.7 mEq/l mEq/l (+/-2.0) A-a Gradient Not Reportable Oxyhemoglobin 98.2 % THb % THb (90.0-100.0) Carboxyhemoglobin 0.5 % THb % THb (0-2.0) Methemoglobin 0.3 %THb %THb (0-1.5) Reduced Hemoglobin 1.0 %THb %THb (0-5.0) Total Hemoglobin 8.7 g/dL L g/dL (12.0-18.0) O2 Delivery Device Nasal cannula O2 Liters/Min 4.0 LPM LPM FiO2 36 % % Sodium 152 mmol/L H mmol/L (137-145) Potassium Chloride Carbon Dioxide Anion Gap BUN Creatinine Estim Creat Clear Calc Estimated GFR Glucose Calcium Magnesium Total Bilirubin AST ALT Alkaline Phosphatase Total Protein Albumin Urine Color Yellow (Yellow) Urine Appearance Cloudy H (Clear) Urine pH 5.5 (5.0
[2023-02-05] MEDS: LACTATED RINGERS 1,000 ML 30 ML IV CONT (10:28)
--- NOTE | 2023-02-05 10:46 | WPDHPUPDATE1 ---
History and Physical Update Update Date/Time: 02/05/23 10:46 History and Physical has been reviewed, including an updated exam of the patient. There are NO changes in the patient's condition. Risks, benefits, and alternatives have been discussed and questions answered. Patient agrees to proceed with procedure.
--- NOTE | 2023-02-05 11:01 | P.CDI_ITS ---
CDI Query Clarification Request Please see documentation. 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 Please refer to the Comprehensive Nutrition Assessment for more information. Please clarify severity of protein calorie malnutrition if known * Mild * Moderate * Severe * Other/Unspecified <Belle Duncan RN - Last Filed: 02/05/23 11:08>
--- NOTE | 2023-02-05 12:11 | P.OP_ITS ---
Procedure Note - Detailed Date of Procedure 02/05/23 Pre-op Diagnosis Sacral decubitus ulcer Post-op Diagnosis Same ( Stage IV sacral decubitus ulcer) Procedure Performed Sharp excisional debridement sacral decubitus ulcer measuring 7 cm x 7 cm including skin, subcutaneous fat, and muscle/tendon Surgeon Eulogio Chin DO Lockstitch Sleeve Setter Neda Maldonado NP Anesthesia General Indications this is an 87-year-old woman who presented from her [facility] facility with a sacral decubitus ulcer. She is only oriented x1 and unable to obtain history. She has a large sacral decubitus ulcer with necrotic tissue on the surface and foul-smelling drainage. This appears to be a stage IV decubitus ulcer and is in need of debridement to control the infection. Findings Sharp excisional debridement was performed. The entire area measured about 7 cm x 7 cm. Debridement included necrotic skin, subcutaneous fat, muscle and tendon. Debridement was performed using 15 blade scalpel and scissors. Description of Procedure Procedure as well as risks, benefits, and alternatives were discussed with the patient's [facility]. Phone consent was obtained and placed in the chart prior to procedure. Patient was brought back to surgical suite. She was placed in supine position on the operating table. Time-out was done to confirm patient and procedure. She was then intubated by the anesthesia department. She was then repositioned into right lateral decubitus position. Her sacral area was prepped and draped in sterile fashion using Betadine prep. Sharp excisional debridement was performed using a 15 blade scalpel around the necrotic skin at the surface. The skin was completely excised. The deeper necrotic tissue was then excised using curved scissors. The tissue appeared to involve necrotic skin, subcutaneous fat, muscle and tendon. The bone appeared firm and intact. After most of the necrotic tissue was adequately debrided, the area was then irrigated with sterile saline. Hemostasis appeared adequate. No other abnormalities were noted. Wound dimensions measured 7 cm x 7 cm. The wound was then packed with Betadine-soaked Kerlix gauze followed by fluff gauze, ABD pads, and Medipore tape. The patient was then awakened from anesthesia, extubated, and transferred to recovery. Estimated Blood Loss 5 Urine Output 0 Packing Yes ( 4 in Betadine-soaked Kerlix gauze) Complications No immediate complications Condition Other ( poor) Disposition Floor [facility] Billing Surgery - Charge Forward: Surgery Billing
[2023-02-05] MEDS: CEFEPIME 2 GM/NS 50 ML 2 GM/50 ML BAG IVPB (13:13)
[2023-02-05 16:02] LABS: Sodium 148 mmol/L (137-145)
[2023-02-05] MEDS: ASCORBIC ACID 500 MG TABLET PO (17:18)
[2023-02-05] MEDS: SIMVASTATIN 20 MG TABLET 40 MG PO (20:17)
[2023-02-05] MEDS: MIRTAZAPINE 7.5 MG TABLET PO (20:17)
[2023-02-05] MEDS: DONEPEZIL HCL 10 MG TABLET PO (20:17)
[2023-02-05] MEDS: MEMANTINE 10 MG TABLET PO (20:17)
[2023-02-05] MEDS: traZODone HCL 50 MG TABLET 100 MG PO (20:17)
[2023-02-06] VITALS: BP 94/58; PULSE 84; RESP 16; TEMP 36.6; O2SAT 99
[2023-02-06 04:23] VITALS: BP 110/51; PULSE 79; RESP 16; TEMP 36.6; O2SAT 100
[2023-02-06] MEDS: metroNIDAZOLE 500 MG/ISO 100ML 500 MG/100 ML BAG 100 MG IVPB ×3 (05:21→21:29)
[2023-02-06 05:58] LABS: Hematocrit 26.7 % (37.0-47.0); Hemoglobin 7.7 g/dL (12.0-15.0); Mean Corpuscular HGB Conc 28.8 g/dl (32-36); Mean Corpuscular Hemoglobin 29.6 pg (26-34); Mean Corpuscular Volume 102.7 fl (80-100); Mean Platelet Volume 10.4 fl (7.4-10.4); Platelet Count Result 232 k/mm3 (150-375); White Blood Count 7.6 K/mm3 (4.5-10.0)
[2023-02-06 06:05] LABS: Anion Gap 2 mmol/L (8-16); Blood Urea Nitrogen 17 mg/dL (7-17); Calcium 7.6 mg/dL (8.4-10.2); Carbon Dioxide 23 mmol/L (22-30); Chloride 119 mmol/L (98-107); Estimated CRCL calculation 42 ml/min; Estimated Glomerular Filt Rate > 60; Glucose 144 mg/dL (65-110); Potassium 3.2 mmol/L (3.4-5.0); Sodium 144 mmol/L (137-145)
--- NOTE | 2023-02-06 07:57 | PM.IMPN ---
Progress Note: A&P Assessment and Plan (1) Decubitus ulcer of sacral area: Code(s): L89.159 - Pressure ulcer of sacral region, unspecified stage Status: Acute Assessment and Plan: Patient noted to have large decubitus ulceration and imaging suggestive extending to the bone without suggested osteomyelitis. Prelim discharge and follow odor noted suggesting infection. Continue broad-spectrum antibiotics-IV vancomycin pharmacy to dose, IV cefepime, and IV metronidazole Continue offloading schedule q.2 hours General surgery and Wound care consulted and appreciate recommendations. 02/05 OR debridement completed. Michele catheter placed due to decubitus ulcer Blood cultures negative to date wound culture with many gram negative bacilli, but of note obtained after abx initiated. (2) Acute dehydration: Code(s): E86.0 - Dehydration Status: Acute Assessment and Plan: Secondary to acute infection, poor oral intake and suggested by acute hypernatremia Trend BMP - renal function stable. Hypernatremia resolved. Continue D51/2NS at 100 mL/hour. Saline lock when taking good PO. Monitor strict I's and O's- Urine output improving (3) Wound infection: Code(s): T14.8XXA - Other injury of unspecified body region, initial encounter; L08.9 - Local infection of the skin and subcutaneous tissue, unspecified Status: Acute Assessment and Plan: As above (4) Acute hypernatremia: Code(s): E87.0 - Hyperosmolality and hypernatremia Status: Resolved Assessment and Plan: Sodium 155 on admission. Secondary to poor oral free water intake. Changed to D5W. Repeat sodium 152. Will continue q.6 hours sodium checks until sodium less than 145 02/05 Sodium 150, increase D5W 125 mL/hour 02/06 Sodium 144, stop D5W. Oral intake is still poor. Add D51/2NS with KCl 20 mEQ @100 mL/hour. Saline lock when taking good PO. (5) Esophagitis: Code(s): K20.90 - Esophagitis, unspecified without bleeding Status: Acute Assessment and Plan: A suggested on CT scan. Continue IV PPI b.i.d. (6) Fecal impaction: Code(s): K56.41 - Fecal impaction Status: Resolved Assessment and Plan: Soapsuds enema x1 patient with bowel movement 02/04. Pt with 3 BM documented 02/04-02/05 Daily miralax (7) Acute metabolic encephalopathy: Code(s): G93.41 - Metabolic encephalopathy Status: Acute Assessment and Plan: secondary to hypernatremia, acute decubitus ulcer with infection, dehydration and known underlying dementia. Continue to treat as above. Monitor neuro status 02/05 patient is more alert today. (8) Abnormal urinalysis: Code(s): R82.90 - Unspecified abnormal findings in urine Status: Acute Assessment and Plan: UA sent with IV catheter insertion and demonstrated cloudy urine with high specific gravity, 3+ blood, positive nitrates, 2+ leukocyte, greater than 100 wbc's and rbc's, rare epi cells and 4+ bacteria suggestive of acute infection. Given patient's mental status it difficult to assess symptoms. Continue broad-spectrum IV antibiotics as above. Urine and blood cultures without growth to date (9) Anemia: Qualifiers: Anemia type: other cause Code(s): D64.9 - Anemia, unspecified Status: Chronic Assessment and Plan: Hgb 9.6 to 8.9 to 7.9. Patient takes B12, folic acid supplements. Check iron panel. Presumed nutritional deficiency anemia given malnutrition. (10) Protein-calorie malnutrition, severe: Code(s): E43 - Unspecified severe protein-calorie malnutrition Status: Chronic Assessment and Plan: BMI 14 kg/m2. albumin 2.7. with evidence of frailty, subcutaneous fat loss and muscle wasting. Ict Business Analyst consulted. Continue oral supplements as recommended. Plan Code status: Full code. Disposition: Patient is from [facility] and has a state guardian. Diet: Regu
[2023-02-06 08:00] VITALS: BP 100/65; PULSE 73; RESP 20; TEMP 35.9; O2SAT 100
[2023-02-06] MEDS: POTASSIUM CHLORIDE 20 MEQ PACKET (FOR LIQUID) 40 MEQ PO (08:57)
[2023-02-06] MEDS: FOLIC ACID 0.4 MG TABLET PO (08:57)
[2023-02-06] MEDS: MEMANTINE 10 MG TABLET PO ×2 (08:57→21:24)
[2023-02-06] MEDS: ASCORBIC ACID 500 MG TABLET PO ×2 (08:57→17:31)
[2023-02-06] MEDS: CYANOCOBALAMIN 500 MCG TABLET PO (08:57)
[2023-02-06] MEDS: SOD HYPOCHLORITE 1/4 STRENGTH 473 ML 1 APPLIC TOPICAL ×2 (08:58→21:29)
[2023-02-06] MEDS: PANTOPRAZOLE SODIUM IV 40 MG VIAL IV PUSH (08:58)
[2023-02-06] MEDS: THERAPEUTIC MULTIVITAMINS/MINERALS TAB (*BKC) 1 TABLET PO (08:58)
[2023-02-06] MEDS: polyethylene glycoL 3350 17 GM POWD.PACK PO (08:58)
[2023-02-06] MEDS: SILVERGEL (ELTA) 45 ML 1 APPLIC TOPICAL (08:58)
[2023-02-06] MEDS: KCL 20 MEQ/D5/0.45% SOD CHL 1,000 ML 100 ML IV CONT (09:14)
--- NOTE | 2023-02-06 11:41 | PCNFU ---
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 Goal:Increase oral intake to at least 50% meals and supplements - Goal being met Meet estimated nutrition needs to promote wound healing _ Goal being met with PO diet Pt current nutrition is Puree diet. Intakes 50-100% last 24 hours. Alfonso BID, Ensure Enlive TID. Nutrition recommendation: Continue with current supplements and diet order. Last recorded weight is 39.2 kg. Bowel Motility: +1 BM 02/05/23 Labs Reviewed: Hgb 7.6, Hct 26.7, Alb 2.7, Cre 0.5 Meds Noted: Donepezil, namenda, Vit B12, Folic acid, Vit C, remeron, protonix, zofran Skin: DTI BL hips; stage IV sacrum. Debridement done yesterday Additional Notes: Oral intake improved. Pt does not need a NG tube feeding at this time. Continue current orders. Agree with orders Monitoring intakes, labs, plan of care, wound healing, swallow ability, weight Follow up in 5 days
[2023-02-06] MEDS: CEFEPIME 2 GM/NS 50 ML 2 GM/50 ML BAG IVPB (12:53)
[2023-02-06 14:00] VITALS: BP 99/68; PULSE 73; RESP 20; TEMP 36.4; O2SAT 100
--- NOTE | 2023-02-06 14:28 | WPDANESPN ---
Anes - Prog Note Post-Op Date/Time: 02/06/23 14:28 Cardiovascular status: normal Respiratory status: normal Airway patency: baseline Mental status: baseline (confused at baseline) Post-Op hydration status: normal Vital Signs: Last Vital Signs Temp 36.4 C 02/06/23 14:00 Pulse 73 02/06/23 14:00 Resp 20 02/06/23 14:00 BP 99/68 L 02/06/23 14:00 Pulse Ox 100 02/06/23 14:00 O2 Del Method Room Air 02/06/23 08:45 O2 Flow Rate 2 02/05/23 12:45 Pain Score (VAS): 0 I/O: Intake & Output 02/05/23 02/06/23 02/06/23 23:59 07:59 15:59 Intake Total 1340 200 530 Output Total 400 Balance 1340 -200 530 Laboratory Tests 02/06/23 05:32 02/06/23 05:32 02/05/23 02/06/23 02/06/23 15:24 05:32 05:32 WBC 7.6 RBC 2.60 L Hgb 7.7 L Hct 26.7 L MCV 102.7 H MCH 29.6 MCHC 28.8 L RDW 15.0 H Plt Count 232 MPV 10.4 Sodium 148 H 144 Potassium 3.2 L Chloride 119 H Carbon Dioxide 23 Anion Gap 2 L BUN 17 Creatinine 0.50 L Estim Creat Clear Calc 42 Estimated GFR > 60 Glucose 144 H Calcium 7.6 L Microbiology 02/05/23 09:40 Sacral Wound Culture - Preliminary 02/04/23 13:54 Urine Clean Catch Urine Culture - Final Post-procedural complaints: none Patient Feedback: Patient satisfied with anesthetic care.
--- NOTE | 2023-02-06 15:57 | PM.PNGS ---
Progress Note: A&P Assessment and Plan (1) Sacral decubitus ulcer, stage IV: Code(s): L89.154 - Pressure ulcer of sacral region, stage 4 Status: Acute Assessment and Plan: patient still has some necrotic tissue within the wound bed, but there did no longer appears to be purulence drainage. Continue daily dressing changes with Dakin's soaked 4 x 4 gauze. This wound will likely never heal given the patient's poor oral nutrition and bed ridden state. The only reasonable treatment would be very vigilant wound care to prevent recurrent infections and septic complications. Patient is not a candidate for diverting colostomy given her low albumin and BMI. Patient has a poor overall prognosis and hospice or comfort measures would be reasonable to consider at this point. (2) Protein-calorie malnutrition, severe: Code(s): E43 - Unspecified severe protein-calorie malnutrition Status: Chronic Subjective Subjective Date/Time Seen: 02/06/23 15:57 Interval history: No acute events overnight. Unable to obtain any history from patient. Exam Back/Spine/Pelvis: Other: Sacral decubitus ulcer with about 50% necrotic tissue within wound bed. No purulence drainage. Minimal bleeding. Objective Data Vital Signs Vital Signs: Vital Signs - 24 hr 02/05/23 18:38 02/05/23 20:00 02/05/23 21:32 Temperature 36.4 C 36.6 C Pulse Rate 84 74 Respiratory Rate 14 16 Blood Pressure 104/48 L Pulse Oximetry 100 97 100 Oxygen Delivery Room Air 02/06/23 00:00 02/06/23 04:23 02/05/23 23:16 Temperature 36.6 C 36.6 C Pulse Rate 84 79 Respiratory Rate 16 16 Blood Pressure 94/58 L 110/51 L Pulse Oximetry 99 100 99 Oxygen Delivery Room Air 02/06/23 08:00 02/06/23 08:45 02/06/23 14:00 Temperature 35.9 C L 36.4 C Pulse Rate 73 73 Respiratory Rate 20 20 Blood Pressure 100/65 99/68 L Pulse Oximetry 100 100 Oxygen Delivery Room Air Intake/Output Intake/Output: Intake & Output 02/03/23 02/04/23 02/05/23 02/06/23 23:59 23:59 23:59 23:59 Intake Total 2049 550 3320 730 Output Total 0 320 400 Balance 2050 550 3000 330 Meds/Results Medications: Active Medications Generic Name Dose Route Start Last Admin Trade Name Freq PRN Reason Stop Dose Admin Acetaminophen 650 mg 02/03/23 20:04 Acetaminophen 325 Mg Tablet PO Q4H PRN Mild Pain (1-3) or Fever Hydrocodone Bitart/Acetaminophen 1 tab 02/03/23 20:04 Hydrocodone/Acetaminophen (*Crx) 5-325 Mg Tablet PO Q4H PRN Pain Rated 4-6 Ascorbic Acid 500 mg 02/05/23 17:00 02/06/23 08:57 Ascorbic Acid 500 Mg Tablet PO 500 mg BID KLEBER Administration Calcium Carbonate 500 mg 02/05/23 17:00 02/06/23 08:57 Calcium/Vitamin D 500 Mg Tablet PO 500 mg BID KLEBER Administration Cyanocobalamin 500 mcg 02/06/23 09:00 02/06/23 08:57 Cyanocobalamin 500 Mcg Tablet PO 500 mcg DAILY KLEBER Administration Donepezil HCl 10 mg 02/05/23 21:00 02/05/23 20:17 Donepezil Hcl 10 Mg Tablet PO 10 mg HS KLEBER Administration Folic Acid 0.4 mg 02/06/23 09:00 02/06/23 08:57 Folic Acid 0.4 Mg Tablet PO 0.4 mg DAILY KLEBER Administration Vancomycin HCl 750 mg in 250 mls @ 250 mls/hr 02/05/23 09:00 02/05/23 11:48 Vancomycin 750 Mg/D5w 250 Ml IVPB Infused Q36H KLEBER Infusion Cefepime HCl 2 gm in 50 mls @ 100 mls/hr 02/04/23 12:00 02/06/23 13:23 Maxipime 2 Gm/Ns 50 Ml IVPB Infused NOON KLEBER Infusion Metronidazole 500 mg in 100 mls @ 100 mls/hr 02/04/23 14:00 02/06/23 13:43 Flagyl 500 Mg/Iso Soln 100 Ml IVPB 100 mls/hr Q8HR KLEBER Administration Acetaminophen 1,000 mg in 100 mls @ 400 mls/hr 02/04/23 22:00 02/06/23 13:43 Ofirmev 1,000 Mg Ivpb IVPB 02/06/23 21:59 400 mls/hr Q8HR KLEBER Administration Potassium Chloride/Dextrose/Sod Cl 1,000 mls @ 100 mls/hr 02/06/23 08:00 02/06/23 09:14 Kcl 20 Meq/D5/0.45% Sod Chl IV CONT 100 mls/hr .Q10H KLEBER Admi
[2023-02-06 20:03] VITALS: BP 121/80; PULSE 70; RESP 20; TEMP 36.6; O2SAT 98
[2023-02-06] MEDS: SIMVASTATIN 20 MG TABLET 40 MG PO (21:24)
[2023-02-06] MEDS: DONEPEZIL HCL 10 MG TABLET PO (21:24)
[2023-02-06] MEDS: traZODone HCL 50 MG TABLET 100 MG PO (21:24)
[2023-02-06] MEDS: MIRTAZAPINE 7.5 MG TABLET PO (21:24)
[2023-02-06 21:35] LABS: Vancomycin Trough < 5.0 ug/mL (10.0-20.0)
[2023-02-07] MEDS: KCL 20 MEQ/D5/0.45% SOD CHL 1,000 ML 100 ML IV CONT (01:50)
[2023-02-07 04:39] VITALS: BP 111/42; PULSE 67; RESP 22; TEMP 36.5; O2SAT 97
[2023-02-07 05:40] LABS: Hematocrit 26.5 % (37.0-47.0); Hemoglobin 7.9 g/dL (12.0-15.0); Immature Reticulocyte Fraction 20.3 % (3.0-15.9); Mean Corpuscular HGB Conc 29.8 g/dl (32-36); Mean Corpuscular Hemoglobin 29.7 pg (26-34); Mean Corpuscular Volume 99.6 fl (80-100); Mean Platelet Volume 9.8 fl (7.4-10.4); Platelet Count Result 236 k/mm3 (150-375); Red Blood Count 2.66 M/mm3 (4.2-5.4); Red Cell Distribution Width 14.9 % (11.5-14.5); Reticulocyte Hemoglobin Conten 27.8 pg (28.2-35.7); Reticulocyte Percent 2.64 % (0.7-4.3); Reticulocytes Absolute 0.07 B/L (32.2-175.7); White Blood Count 6.7 K/mm3 (4.5-10.0)
[2023-02-07 05:48] LABS: Anion Gap 1 mmol/L (8-16); Blood Urea Nitrogen 13 mg/dL (7-17); Calcium 7.6 mg/dL (8.4-10.2); Carbon Dioxide 23 mmol/L (22-30); Chloride 118 mmol/L (98-107); Estimated CRCL calculation 42 ml/min; Estimated Glomerular Filt Rate > 60; Glucose 138 mg/dL (65-110); Potassium 3.8 mmol/L (3.4-5.0); Sodium 142 mmol/L (137-145)
[2023-02-07] MEDS: metroNIDAZOLE 500 MG/ISO 100ML 500 MG/100 ML BAG 100 MG IVPB ×3 (06:34→19:44)
[2023-02-07] MEDS: polyethylene glycoL 3350 17 GM POWD.PACK PO (08:53)
[2023-02-07] MEDS: THERAPEUTIC MULTIVITAMINS/MINERALS TAB (*BKC) 1 TABLET PO (08:54)
[2023-02-07] MEDS: PANTOPRAZOLE 40 MG TABLET PO (08:54)
[2023-02-07] MEDS: FOLIC ACID 0.4 MG TABLET PO (08:54)
[2023-02-07] MEDS: ASCORBIC ACID 500 MG TABLET PO ×2 (08:54→17:33)
[2023-02-07] MEDS: MEMANTINE 10 MG TABLET PO ×2 (08:55→19:45)
[2023-02-07] MEDS: SILVERGEL (ELTA) 45 ML 1 APPLIC TOPICAL (08:57)
[2023-02-07] MEDS: SOD HYPOCHLORITE 1/4 STRENGTH 473 ML 1 APPLIC TOPICAL ×2 (08:57→19:49)
[2023-02-07] MEDS: CYANOCOBALAMIN 500 MCG TABLET PO (08:58)
[2023-02-07 09:00] VITALS: PULSE 67; RESP 22; O2SAT 97
--- NOTE | 2023-02-07 12:45 | PM.IMPN ---
Progress Note: A&P Assessment and Plan (1) Decubitus ulcer of sacral area: Code(s): L89.159 - Pressure ulcer of sacral region, unspecified stage Status: Acute Assessment and Plan: Patient noted to have large decubitus ulceration and imaging suggestive extending to the bone without suggested osteomyelitis. Prelim discharge and follow odor noted suggesting infection. Continue broad-spectrum antibiotics-IV vancomycin pharmacy to dose, IV cefepime, and IV metronidazole Continue offloading schedule q.2 hours General surgery and Wound care consulted and appreciate recommendations. 02/05 OR debridement Michele catheter placed due to decubitus ulcer Blood cultures negative to date wound culture with many gram negative bacilli but appears to be skin katey. Appreciate surgery recommendation for antibiotics. (2) Acute dehydration: Code(s): E86.0 - Dehydration Status: Acute Assessment and Plan: Secondary to acute infection, poor oral intake and suggested by acute hypernatremia Trend BMP - renal function stable. Hypernatremia resolved. Continue D51/2NS at 100 mL/hour. Saline lock when taking good PO. Monitor strict I's and O's Improved. Saline lock IV fluids. (3) Wound infection: Code(s): T14.8XXA - Other injury of unspecified body region, initial encounter; L08.9 - Local infection of the skin and subcutaneous tissue, unspecified Status: Acute Assessment and Plan: As above (4) Acute hypernatremia: Code(s): E87.0 - Hyperosmolality and hypernatremia Status: Resolved Assessment and Plan: Sodium 155 on admission. Secondary to poor oral free water intake. Changed to D5W. Repeat sodium 152. Will continue q.6 hours sodium checks until sodium less than 145 02/05 Sodium 150, increase D5W 125 mL/hour 02/06 Sodium 144, stop D5W. Oral intake is still poor. Add D51/2NS with KCl 20 mEQ @100 mL/hour. Saline lock when taking good PO. Stable. 02/07 saline lock IV fluids. Repeat sodium in am. (5) Esophagitis: Code(s): K20.90 - Esophagitis, unspecified without bleeding Status: Acute Assessment and Plan: A suggested on CT scan. Continue PPI PO (6) Fecal impaction: Code(s): K56.41 - Fecal impaction Status: Resolved Assessment and Plan: Soapsuds enema x1 patient with bowel movement 02/04. Pt with 3 BM documented 02/04-02/05 Daily miralax (7) Acute metabolic encephalopathy: Code(s): G93.41 - Metabolic encephalopathy Status: Acute Assessment and Plan: secondary to hypernatremia, acute decubitus ulcer with infection, dehydration and known underlying dementia. Continue to treat as above. Monitor neuro status Improved. Appears at baseline (8) Abnormal urinalysis: Code(s): R82.90 - Unspecified abnormal findings in urine Status: Acute Assessment and Plan: UA sent with IV catheter insertion and demonstrated cloudy urine with high specific gravity, 3+ blood, positive nitrates, 2+ leukocyte, greater than 100 wbc's and rbc's, rare epi cells and 4+ bacteria suggestive of acute infection. Given patient's mental status it difficult to assess symptoms. Continue broad-spectrum IV antibiotics as above. Urine and blood cultures without growth to date (9) Anemia: Qualifiers: Anemia type: other cause Code(s): D64.9 - Anemia, unspecified Status: Chronic Assessment and Plan: Hgb 9.6 to 8.9 to 7.9. Patient takes B12, folic acid supplements. iron panel pending. Presumed nutritional deficiency anemia given malnutrition. (10) Protein-calorie malnutrition, severe: Code(s): E43 - Unspecified severe protein-calorie malnutrition Status: Chronic Assessment and Plan: BMI 14 kg/m2. albumin 2.7. with evidence of frailty, subcutaneous fat loss and muscle wasting. Biologist Aide consulted. Continue oral supplements as recommended. Plan Code status:
[2023-02-07 13:39] LABS: Iron 13 ug/dL (37-170)
[2023-02-07 13:53] LABS: Percent Iron Saturation 9 % (20-50)
[2023-02-07 14:00] VITALS: BP 158/78; PULSE 84; RESP 20; TEMP 35.7; O2SAT 100
[2023-02-07] MEDS: CEFEPIME 2 GM/NS 50 ML 2 GM/50 ML BAG IVPB (15:13)
[2023-02-07 19:42] VITALS: BP 146/88; PULSE 96; RESP 18; TEMP 36.2; O2SAT 92
[2023-02-07] MEDS: SIMVASTATIN 20 MG TABLET 40 MG PO (19:45)
[2023-02-07] MEDS: traZODone HCL 50 MG TABLET 100 MG PO (19:45)
[2023-02-07] MEDS: DONEPEZIL HCL 10 MG TABLET PO (19:46)
[2023-02-07] MEDS: MIRTAZAPINE 7.5 MG TABLET PO (19:46)
[2023-02-08 04:45] VITALS: BP 148/54; PULSE 91; RESP 18; TEMP 36.9; O2SAT 100
[2023-02-08] MEDS: metroNIDAZOLE 500 MG/ISO 100ML 500 MG/100 ML BAG 100 MG IVPB ×3 (05:55→20:52)
[2023-02-08] MEDS: polyethylene glycoL 3350 17 GM POWD.PACK PO (08:42)
[2023-02-08] MEDS: PANTOPRAZOLE 40 MG TABLET PO (08:43)
[2023-02-08] MEDS: FOLIC ACID 0.4 MG TABLET PO (08:43)
[2023-02-08] MEDS: CYANOCOBALAMIN 500 MCG TABLET PO (08:43)
[2023-02-08] MEDS: SOD HYPOCHLORITE 1/4 STRENGTH 473 ML 1 APPLIC TOPICAL ×2 (08:43→20:48)
[2023-02-08] MEDS: MEMANTINE 10 MG TABLET PO ×2 (08:43→20:49)
[2023-02-08] MEDS: ASCORBIC ACID 500 MG TABLET PO ×2 (08:43→17:53)
[2023-02-08] MEDS: THERAPEUTIC MULTIVITAMINS/MINERALS TAB (*BKC) 1 TABLET PO (08:43)
[2023-02-08] MEDS: SILVERGEL (ELTA) 45 ML 1 APPLIC TOPICAL (08:44)
[2023-02-08 08:45] VITALS: PULSE 85; RESP 17; O2SAT 100
[2023-02-08 10:27] LABS: Hematocrit 30.4 % (37.0-47.0); Mean Corpuscular HGB Conc 29.6 g/dl (32-36); Mean Corpuscular Volume 98.1 fl (80-100); Mean Platelet Volume 10.2 fl (7.4-10.4); Platelet Count Result 307 k/mm3 (150-375); Red Cell Distribution Width 15.2 % (11.5-14.5); White Blood Count 7.1 K/mm3 (4.5-10.0)
[2023-02-08 10:47] LABS: Anion Gap 2 mmol/L (8-16); Blood Urea Nitrogen 14 mg/dL (7-17); Calcium 8.5 mg/dL (8.4-10.2); Carbon Dioxide 26 mmol/L (22-30); Chloride 115 mmol/L (98-107); Estimated CRCL calculation 52 ml/min; Estimated Glomerular Filt Rate > 60; Glucose 154 mg/dL (65-110); Potassium 4.2 mmol/L (3.4-5.0); Sodium 143 mmol/L (137-145)
[2023-02-08 10:54] LABS: Vancomycin Trough 9.9 ug/mL (10.0-20.0)
--- NOTE | 2023-02-08 11:13 | PM.IMPN ---
Progress Note: A&P Assessment and Plan (1) Decubitus ulcer of sacral area: Code(s): L89.159 - Pressure ulcer of sacral region, unspecified stage Status: Acute Assessment and Plan: Patient noted to have large decubitus ulceration and imaging suggestive extending to the bone without suggested osteomyelitis. Prelim discharge and follow odor noted suggesting infection. Continue broad-spectrum antibiotics-IV vancomycin pharmacy to dose, IV cefepime, and IV metronidazole Continue offloading schedule q.2 hours General surgery and Wound care consulted and appreciate recommendations. 02/05 OR debridement of sacral pressure ulcer. Michele catheter placed due to decubitus ulcer Blood cultures negative to date wound culture with many gram negative bacilli but appears to be skin katey. Appreciate surgery recommendation for antibiotics. (2) Acute dehydration: Code(s): E86.0 - Dehydration Status: Acute Assessment and Plan: Secondary to acute infection, poor oral intake and suggested by acute hypernatremia Trend BMP - renal function stable. Hypernatremia resolved. Continue D51/2NS at 100 mL/hour. Saline lock when taking good PO. Monitor strict I's and O's Improved. Saline lock IV fluids. (3) Wound infection: Code(s): T14.8XXA - Other injury of unspecified body region, initial encounter; L08.9 - Local infection of the skin and subcutaneous tissue, unspecified Status: Acute Assessment and Plan: As above (4) Acute hypernatremia: Code(s): E87.0 - Hyperosmolality and hypernatremia Status: Resolved Assessment and Plan: Sodium 155 on admission. Secondary to poor oral free water intake. Changed to D5W. Repeat sodium 152. 02/05 Sodium 150, increase D5W 125 mL/hour 02/06 Sodium 144, stop D5W. Oral intake is still poor. Add D51/2NS with KCl 20 mEQ @100 mL/hour. Saline lock when taking good PO. 02/07 saline lock IV fluids 02/08 Sodium 143 off IV fluids for 24 hours. continue to assist with oral fluid intake. (5) Esophagitis: Code(s): K20.90 - Esophagitis, unspecified without bleeding Status: Acute Assessment and Plan: A suggested on CT scan. Continue PPI PO (6) Fecal impaction: Code(s): K56.41 - Fecal impaction Status: Resolved Assessment and Plan: Soapsuds enema x1 patient with bowel movement 02/04. Pt with 3 BM documented 02/04-02/05 Daily miralax (7) Acute metabolic encephalopathy: Code(s): G93.41 - Metabolic encephalopathy Status: Resolved Assessment and Plan: secondary to hypernatremia, acute decubitus ulcer with infection, dehydration and known underlying dementia. Continue to treat as above. Monitor neuro status Improved. Appears at baseline (8) Abnormal urinalysis: Code(s): R82.90 - Unspecified abnormal findings in urine Status: Acute Assessment and Plan: UA sent with IV catheter insertion and demonstrated cloudy urine with high specific gravity, 3+ blood, positive nitrates, 2+ leukocyte, greater than 100 wbc's and rbc's, rare epi cells and 4+ bacteria suggestive of acute infection. Given patient's mental status it difficult to assess symptoms. Continue broad-spectrum IV antibiotics as above. Urine and blood cultures without growth to date Unclear if acute UTI versus asymptomatic bacteruria given that culture was taken after antibiotics were started. (9) Anemia: Qualifiers: Anemia type: other cause Code(s): D64.9 - Anemia, unspecified Status: Chronic Assessment and Plan: Hgb 9.6 to 8.9 to 7.9. Patient takes B12, folic acid supplements. iron panel- serum iron 13, TIBC 145, saturation 9%, ferritin 317, immature reticulocyte count 30. Appears to be anemia of chronic disease. (10) Protein-calorie malnutrition, severe: Code(s): E43 - Unspecified severe protein-calorie malnutrition Status: Chronic Assessment an
[2023-02-08] MEDS: CEFEPIME 2 GM/NS 50 ML 2 GM/50 ML BAG IVPB (14:06)
[2023-02-08 14:35] VITALS: BP 90/42; PULSE 85; RESP 17; TEMP 36.7; O2SAT 100
[2023-02-08 20:00] VITALS: PULSE 78; RESP 18; O2SAT 100
[2023-02-08] MEDS: DONEPEZIL HCL 10 MG TABLET PO (20:49)
[2023-02-08] MEDS: traZODone HCL 50 MG TABLET 100 MG PO (20:49)
[2023-02-08] MEDS: MIRTAZAPINE 7.5 MG TABLET PO (20:49)
[2023-02-08] MEDS: SIMVASTATIN 20 MG TABLET 40 MG PO (20:49)
[2023-02-08] MEDS: HEPARIN SODIUM 5,000 UNITS/ML VIAL 5000 UNITS SUB-Q (20:49)
[2023-02-08 22:00] VITALS: BP 138/50; PULSE 78; RESP 18; TEMP 36.6; O2SAT 100
[2023-02-09] MEDS: metroNIDAZOLE 500 MG/ISO 100ML 500 MG/100 ML BAG 100 MG IVPB (05:50)
[2023-02-09 06:00] VITALS: BP 82/40; PULSE 66; RESP 20; TEMP 36.6; O2SAT 98
[2023-02-09 06:05] LABS: Hematocrit 23.7 % (37.0-47.0); Hemoglobin 7.2 g/dL (12.0-15.0); Mean Corpuscular HGB Conc 30.4 g/dl (32-36); Mean Corpuscular Hemoglobin 29.4 pg (26-34); Mean Corpuscular Volume 96.7 fl (80-100); Mean Platelet Volume 10.1 fl (7.4-10.4); Platelet Count Result 239 k/mm3 (150-375); Red Blood Count 2.45 M/mm3 (4.2-5.4)
[2023-02-09 06:19] LABS: Anion Gap 0 mmol/L (8-16); Blood Urea Nitrogen 11 mg/dL (7-17); Calcium 7.6 mg/dL (8.4-10.2); Carbon Dioxide 25 mmol/L (22-30); Chloride 115 mmol/L (98-107); Estimated CRCL calculation 52 ml/min; Estimated Glomerular Filt Rate > 60; Glucose 82 mg/dL (65-110); Potassium 3.3 mmol/L (3.4-5.0); Sodium 140 mmol/L (137-145)
[2023-02-09] MEDS: SODIUM CHLORIDE 0.9% IV 250 ML 999 ML IV CONT (06:58)
[2023-02-09 07:36] VITALS: BP 127/69; PULSE 90; O2SAT 100
[2023-02-09] MEDS: polyethylene glycoL 3350 17 GM POWD.PACK PO (09:14)
[2023-02-09 09:15] VITALS: PULSE 95; RESP 14; O2SAT 99
[2023-02-09] MEDS: MEMANTINE 10 MG TABLET PO (09:16)
[2023-02-09] MEDS: PANTOPRAZOLE 40 MG TABLET PO (09:16)
[2023-02-09] MEDS: CYANOCOBALAMIN 500 MCG TABLET PO (09:16)
[2023-02-09] MEDS: ASCORBIC ACID 500 MG TABLET PO ×2 (09:16→17:40)
[2023-02-09] MEDS: THERAPEUTIC MULTIVITAMINS/MINERALS TAB (*BKC) 1 TABLET PO (09:16)
[2023-02-09] MEDS: FOLIC ACID 0.4 MG TABLET PO (09:16)
[2023-02-09] MEDS: SILVERGEL (ELTA) 45 ML 1 APPLIC TOPICAL (09:17)
[2023-02-09] MEDS: SOD HYPOCHLORITE 1/4 STRENGTH 473 ML 1 APPLIC TOPICAL (09:18)
[2023-02-09] MEDS: HEPARIN SODIUM 5,000 UNITS/ML VIAL 5000 UNITS SUB-Q (09:35)
[2023-02-09 11:29] LABS: Vancomycin Trough 19.4 ug/mL (10.0-20.0)
--- NOTE | 2023-02-09 12:20 | PM.PNGS ---
Progress Note: A&P Assessment and Plan (1) Sacral decubitus ulcer, stage IV: Code(s): L89.154 - Pressure ulcer of sacral region, stage 4 Status: Acute Assessment and Plan: Sacral decubitus ulcer appears stable, no more purulent drainage. Okay from our standpoint to discharge the patient to the alf when okay with Hosptialist. Recommend to continue Dakin's soaked gauze dressing changes on discharge. Wound care to be continued at the alf with goals to prevent recurrent infections and septic complications. Follow-up only as needed. Overall her prognosis is very poor. (2) Protein-calorie malnutrition, severe: Code(s): E43 - Unspecified severe protein-calorie malnutrition Status: Chronic Assessment and Plan: Unlikely that this will ever heal given her poor oral nutrition and immobility. Plan I have discussed the patient's case and plan of care with Dr. Chin. Subjective Subjective Date/Time Seen: 02/09/23 12:20 Interval history: Patient seen today and appears comfortable. Unable to obtain history due to dementia. Primarily mumbles when asked any questions or stimulated. No acute events overnight. Review of Systems Review of Systems: ROS unobtainable: Yes unobtainable due to mental status Exam Narrative: Sacral dressing and packing removed. Sacral decubitus ulcer still with 40-50% of the wound bed with firm necrotic tissue and a few small areas of pink granulation tissue noted. No purulent drainage or odor. No crepitus. Objective Data Vital Signs Vital Signs: Vital Signs - 24 hr 02/08/23 14:35 02/08/23 22:00 02/08/23 20:00 Temperature 98.0 F 97.8 F Pulse Rate 85 78 78 Respiratory Rate 17 18 18 Blood Pressure 90/42 L 138/50 L Pulse Oximetry 100 100 100 Oxygen Delivery Room Air 02/09/23 06:00 02/09/23 07:36 Temperature 97.8 F Pulse Rate 66 90 Respiratory Rate 20 Blood Pressure 82/40 L 127/69 Pulse Oximetry 98 100 Oxygen Delivery Intake/Output Intake/Output: Intake & Output 02/06/23 02/07/23 02/08/23 02/09/23 23:59 23:59 23:59 23:59 Intake Total 2520 960 1320 500 Output Total 1000 1750 1750 600 Balance 1520 -790 -430 -100 Meds/Results Medications: Active Medications Generic Name Dose Route Start Last Admin Trade Name Cullen PRN Reason Stop Dose Admin Acetaminophen 650 mg 02/03/23 20:04 Acetaminophen 325 Mg Tablet PO Q4H PRN Mild Pain (1-3) or Fever Hydrocodone Bitart/Acetaminophen 1 tab 02/03/23 20:04 Hydrocodone/Acetaminophen (*Crx) 5-325 Mg Tablet PO Q4H PRN Pain Rated 4-6 Ascorbic Acid 500 mg 02/05/23 17:00 02/09/23 09:16 Ascorbic Acid 500 Mg Tablet PO 500 mg BID KLEBER Administration Calcium Carbonate 500 mg 02/05/23 17:00 02/09/23 09:16 Calcium/Vitamin D 500 Mg Tablet PO 500 mg BID KLEBER Administration Cyanocobalamin 500 mcg 02/06/23 09:00 02/09/23 09:16 Cyanocobalamin 500 Mcg Tablet PO 500 mcg DAILY KLEBER Administration Donepezil HCl 10 mg 02/05/23 21:00 02/08/23 20:49 Donepezil Hcl 10 Mg Tablet PO 10 mg HS KLEBER Administration Folic Acid 0.4 mg 02/06/23 09:00 02/09/23 09:16 Folic Acid 0.4 Mg Tablet PO 0.4 mg DAILY KLEBER Administration Heparin Sodium (Porcine) 5,000 units 02/08/23 21:00 02/09/23 09:35 Heparin Sodium 5,000 Units/Ml Vial SUB-Q 5,000 units Q12HR KLEBER Administration Cefepime HCl 2 gm in 50 mls @ 100 mls/hr 02/04/23 12:00 02/08/23 14:06 Maxipime 2 Gm/Ns 50 Ml IVPB 100 mls/hr NOON KLEBER Administration Metronidazole 500 mg in 100 mls @ 100 mls/hr 02/04/23 14:00 02/09/23 06:50 Flagyl 500 Mg/Iso Soln 100 Ml IVPB Infused Q8HR KLEBER Infusion Vancomycin HCl 1,250 mg in 250 mls @ 166.667 mls/hr 02/08/23 12:00 02/09/23 01:30 Vancomycin 1,250 Mg/D5w 250 Ml IVPB Infused Q12H KLEBER Infusion Memantine 10 mg 02/05/23 21:00 02/09/23 09:16 Memantine 10 Mg Tablet PO 10 mg Q12HR KLEBER Admini
[2023-02-09 14:00] VITALS: BP 102/77; PULSE 95; RESP 14; TEMP 36.6; O2SAT 99
--- NOTE | 2023-02-09 15:01 | PM.DS ---
DS: Admitting Diagnosis Discharge Date 02/09/2023 Admitting Diagnosis Dehydration Pressure ulcer of sacral region, unspecified stage Wound infection: Hyperosmolality and hypernatremia Esophagitis, unspecified without bleeding Fecal impaction Altered mental status, unspecified DS: Discharge Diagnosis Discharge Diagnosis (1) Sacral decubitus ulcer, stage IV: Code(s): L89.154 - Pressure ulcer of sacral region, stage 4 Status: Acute Assessment and Plan: Patient noted to have large decubitus ulceration and imaging suggestive extending to the bone without suggested osteomyelitis.? Prelim discharge and follow odor noted suggesting infection. Continue broad-spectrum antibiotics-IV Aztreonam 02/03, IV vancomycin pharmacy to dose 02/03-02/09, IV cefepime 02/04-02/09, and IV metronidazole 02/04-02/09.? Transitioned to oral doxycycline 100 mg PO BID and cefdinir 300 mg PO BID on 02/09 to complete 14-day total antibiotic course.? Continue offloading schedule q.2 hours General surgery and Wound care consulted and appreciate recommendations.?? 02/05 OR debridement of sacral pressure ulcer.? Michele catheter placed due to decubitus ulcer Blood cultures negative to date wound culture with many gram negative bacilli but appears to be skin katey and obtained post initiation of abx.? Treated with Dakin's solution wet to dry BID.? Rn Plastic Surgery consulted for severe protein malnutrition (2) Pressure ulcer: Code(s): L89.90 - Pressure ulcer of unspecified site, unspecified stage Status: Acute Assessment and Plan: small stage 2 bilateral hips, deep tissue injury left heel and stage 2 right heel noted. Treated with mepilex and silver gel for open lesions. (3) Acute dehydration: Code(s): E86.0 - Dehydration Status: Acute Assessment and Plan: Secondary to acute infection, poor oral intake and suggested by acute hypernatremia Trend BMP - renal function stable. Hypernatremia resolved. Patient assisted with feeding and frequently offered oral intake. Limited fluid intake due to dementia. Monitor strict I's and O's Improved. Saline lock IV fluids. (4) Wound infection: Code(s): T14.8XXA - Other injury of unspecified body region, initial encounter; L08.9 - Local infection of the skin and subcutaneous tissue, unspecified Status: Acute Assessment and Plan: As above (5) Acute hypernatremia: Code(s): E87.0 - Hyperosmolality and hypernatremia Status: Resolved Assessment and Plan: Sodium 155 on admission. Secondary to poor oral free water intake. 02/04 Changed to D5W. Repeat sodium 152. 02/05 Sodium 150, increase D5W 125 mL/hour 02/06 Sodium 144, stop D5W. Oral intake is still poor. Add D51/2NS with KCl 20 mEQ @100 mL/hour. Saline lock when taking good PO. 02/07 saline lock IV fluids 02/08 Sodium 143 off IV fluids for 24 hours. continue to assist with oral fluid intake. Stable at discharge. (6) Esophagitis: Code(s): K20.90 - Esophagitis, unspecified without bleeding Status: Acute Assessment and Plan: A suggested on CT scan. treated with PPI IV/ PO (7) Fecal impaction: Code(s): K56.41 - Fecal impaction Status: Resolved Assessment and Plan: Soapsuds enema x1 patient with bowel movement 02/04. Pt with 3 BM documented 02/04-02/05 Daily miralax Patient with daily BM (8) Acute metabolic encephalopathy: Code(s): G93.41 - Metabolic encephalopathy Status: Resolved Assessment and Plan: secondary to hypernatremia, acute decubitus ulcer with infection, dehydration and known underlying dementia. Treating underlying cause. Monitored neuro status Improved. Appears at baseline (9) Abnormal urinalysis: Code(s): R82.90 - Unspecified abnormal findings in urine Status: Acute Assessment and Plan: UA sent with IV catheter insertion and demonstrated cloudy urine with high specific gravity, 3
[2023-02-09 16:07] LABS: EDCOVIDSCREEN Negative (Negative)
== END 2023-02-09 19:48 | DRG 981 ==
LOC: ANHED 16:08 → ANH3MED 21:34
PROVIDERS: Surgery; Admitting Provider Internal Medicine; Emergency Provider Emergency Medicine; PCP Family Medicine; Visit Provider Nurse Practitioner Family
PROC: 0LBK0ZZ Excision of Left Hip Tendon, Open Approach (ICD-10-PCS; CPT 46040; principal; 2023-02-05 11:00)
DX: L89.154 Pressure ulcer of sacral region, stage 4 (principal); E43 Unspecified severe protein-calorie malnutrition; G93.41 Metabolic encephalopathy; E87.0 Hyperosmolality and hypernatremia; Z68.1 Body mass index [BMI] 19.9 or less, adult; K82.1 Hydrops of gallbladder; K20.90 Esophagitis, unspecified without bleeding; E86.0 Dehydration; Z20.822 Contact with and (suspected) exposure to COVID-19; F03.90 Unspecified dementia, unspecified severity, without behavioral disturbance, psychotic disturbance, mood disturbance, and anxiety; S30.0XXA Contusion of lower back and pelvis, initial encounter; J44.9 Chronic obstructive pulmonary disease, unspecified; D63.8 Anemia in other chronic diseases classified elsewhere; F41.9 Anxiety disorder, unspecified; F32.A Depression, unspecified; I10 Essential (primary) hypertension; K56.41 Fecal impaction; R82.90 Unspecified abnormal findings in urine; D53.9 Nutritional anemia, unspecified; L89.222 Pressure ulcer of left hip, stage 2; L89.212 Pressure ulcer of right hip, stage 2; L89.626 Pressure-induced deep tissue damage of left heel; L89.612 Pressure ulcer of right heel, stage 2; Z66 Do not resuscitate
CPT/HCPCS: 36415; 36600; 71045; 74177; 80048; 80053; 80202; 81001; 82375; 82728; 82805; 82948; 83050; 83540; 83550; 83605; 83735; 84100; 84295; 85025; 85027; 85046; 85610; 85730; 86140; 87040; 87070; 87086; 87205; 87426; 93005; 96361; 96365; 96367; 96375; 96376; 99285; A9270; C9113; C9803; G0378; J0131; J0692; J1644; J2370; J2405; J2704; J3010; J3370; J3480; J7030; J7040; J7070; J7120; Q9967